=== PATIENT | male | born 1960 | race Caucasian/White ===

== ENCOUNTER 2018-01-21 19:02 | Emergency (ER) | payer SELFPAY ==
[~2018-01-21] VITALS: Ht 170.2 cm; Wt 53.1 kg
[~2018-01-21 19:02] MED LIST: DOXE25CA46 PO; FLUC100T PO; GBPN300C PO; GLIP10TA2 PO; GLUCOPHAGE; IBP800T PO; LIRA0.6P SQ; LISI-594 PO; LISI1TAB10 PO; MAGN400C PO; METF-380 PO; METF10002 PO; METO50TA15 PO; OMEP20CA12 PO; PANT40TA3 PO; SIMV40TA4 PO; SULF1TAB35 PO; SULF1TAB38 PO; TRAM-21 PO; TRAM-42 PO; TRM50T PO; VILA40TA PO
--- OUTSIDE RECORDS SUMMARY | 2018-01-21 19:08 | XMS REPORT ---
Author Author PAZ CRANE [facility] eClinicalWorks Address Unknown Phone Unavailable Care Team Providers Care Environmental Conservation Professor Name Role Phone PAZ CRANE CP Unavailable Allergies No Known Allergies Problems Problem Type Condition Code Onset Dates Condition Status Problem Bipolar 1 disorder F31.9 Active Problem Cough R05 Active Problem Routine health maintenance Z00.00 Active Problem Diabetes E11.9 Active Problem Encounter for counseling and surveillance for drug use disorder Z71.51 Active Problem History of arthritis Z87.39 Active Problem Hyperlipidemia E78.5 Active Problem GERD (gastroesophageal reflux disease) K21.9 Active Problem Hypertension I10 Active Medications No Known Medications Results No Known Results Summary Purpose eClinicalWorks Submission
--- OUTSIDE RECORDS SUMMARY | 2018-01-21 19:08 | XMS REPORT ---
Author Author MICHAEL MOORE [facility] Address [address] [place] [address] Care Team Providers Care Continuous Pillowcase Cutter Name Role Phone MICHAEL MOORE Unavailable PROBLEMS Type Condition ICD9-CM Code FCW50-MA Code Onset Dates Condition Status SNOMED Code Problem Cough R05 Active 04754950 Problem Routine health maintenance Z00.00 Active 687489151 Problem GERD (gastroesophageal reflux disease) K21.9 Active 919047389 Problem Type 2 diabetes mellitus with hyperglycemia E11.65 Active 56531622 Problem residential current use of insulin Z79.4 Active 819490554 Problem Bipolar 1 disorder F31.9 Active 551696406 Problem Hyperlipidemia E78.5 Active 48598831 Problem Arthritis M19.90 Active 8758052 Problem Encounter for counseling and surveillance for drug use disorder Z71.51 Active 112758567 Problem Other chronic gastritis without hemorrhage K29.50 Active 0253246 Problem Hiatal hernia K44.9 Active 13376031 Problem Reflux esophagitis K21.0 Active 130915651 Problem Esophageal candidiasis B37.81 Active 48355384 Problem Hypertension I10 Active 24544958 ALLERGIES Substance Reaction Event Type Date Status Sudafed anxiety, hallucinations Drug Allergy May, Active Neurontin Unknown Drug Allergy May, Active Celebrex Unknown Drug Allergy May, Active Morphine Unknown Drug Allergy May, Active Codeine Unknown Drug Allergy May, Active ENCOUNTERS Encounter Location Date Diagnosis [facility] [address] [facility] [id number], [place] [address] Nov, [facility] [address] [facility] [id number] [address] October, [facility] [address] [id number], [place] [address] 64[address] October, [facility] [id number] [place] [address] 40835- 9626 October, [place] [id number] [place] [address] 21999- 4762 October, Hyperlipidemia E78.5 ; Type 2 diabetes mellitus with hyperglycemia E11.65 ; GERD (gastroesophageal reflux disease) K21.9 ; Arthritis M19.90 ; Bipolar 1 disorder F31.9 and Cough R05 [facility] WALK IN [facility] [id number] [place] [address] 77153 -7900 Sep, Cellulitis of right thumb L03.011 [place] [id number] [place] [address] 26539- 0095 Jul, Arthritis M19.90 [facility] WALK IN [place] [id number] [place] [address] 26270 -7710 May, Paronychia of finger of right hand L03.011 [place] [id number] [place] [address] 40800- 0220 May, Paronychia of finger of right hand L03.011 [facility] WALK IN [place] [id number] [place] [address] 26700 -2129 May, Paronychia of finger of right hand L03.011 [place] [id number] [place] [address] 50620- 3237 May, Paronychia of finger of right hand L03.011 and Arthritis M19.90 [place] [id number] [place] [address] 40785- 0215 May, Hypertension I10 ; Hyperlipidemia E78.5 ; Type 2 diabetes mellitus with hyperglycemia E11.65 ; residential current use of insulin Z79.4 ; Edema of face R60.0 ; Acute non-recurrent maxillary sinusitis J01.00 and GERD ( gastroesophageal reflux disease) K21.9 [place] [id number] [place] [address] 90420- 1035 October, Diabetes type 2, uncontrolled E11.65 ; Hypertension I10 ; GERD (gastroesophageal reflux disease) K21.9 ; Hyperlipidemia E78.5 and Arthritis M19.90 [facility] [id number] [place] [address] 13722- 3285 14 Aug, 2016 [facility] [id number] [place] [address] 61023- 4280 08 Aug, 2016 [facility] [id number] [place] [address] 62624- 3154 Aug, Diabetes E11.9 ; Hypertension I10 ; Hyperlipidemia E78.5 and GERD (gastroesophageal reflux disease) K21.9 [facility] [id number] [place] [address] 11017 -5044 Jul, [facility] [address] [address]106- 9163 Sep, Diabetes E11.9 ; GERD (gastroesophageal reflux disease) K21.9 ; Hypertension I10 ; Hyperlipidemia E78.5 ; History of arthritis Z87.39 ; Bipolar 1 disorder F31.9 and Encounter for counseling and surveillance for drug use disorder Z71.51 [place] [id number] [place] [address] 01481- 6310 Sep, [place] [id number] [place] [address] 95341- 4023 Aug, [facility] [id number] [place] [address] 70048- 7587 Aug, Routine health maintenance Z00.00 ; Diabetes E11.9 ; GERD ( gastroesophageal reflux disease) K21.9 ; History of arthritis Z87.39 ; Hypertension I10 ; Hyperlipidemia E78.5 ; Bipolar 1 disorder F31.9 and Cough R05 [place] [id number] [place] [address] 14034- 7165 Aug, [facility] [id number] [place] [address] 50373- 1723 Aug, Cough R05 [facility] [address] 21185- 0249 Mar, GERD (gastroesophageal reflux disease) K21.9 and Esophageal yeast infection B37.81 [place] [id number] [place] [address] 59511- 8820 Mar, [place] [id number] [place] [address] 06400- 9853 Mar, Difficulty swallowing R13.10 [place] [id number] [place] [address] 23433- 0130 Mar, Cellulitis of finger of left hand L03.012 [place] [id number] [place] [address] 95184- 8829 Mar, Infection of nail bed of finger of left hand L03.012 and Type 2 diabetes mellitus with other skin complications E11.628 [place] [id number] [place] [address] 05277- 6746 Mar, [place] [id number] [place] [address] 42230- 6976 Dec, [place] [id number] [place] [address] 00185- 8638 Dec, [place] [id number] [place] [address] 23719- 5480 Dec, Hand joint pain 719.44 ; Diabetes mellitus without mention of complication, type II or unspecified type, uncontrolled 250.02 ; Bipolar I disorder, most recent episode (or current) mixed, severe, specified as with psychotic behavior 296.64 ; Essential hypertension, benign 401.1 ; Other and unspecified hyperlipidemia 272.4 and Acute gastritis without mention of hemorrhage 535.00 [place] [id number] [place] [address] 83668- 8389 Nov, [place] [id number] [place] [address] 00709- 5145 Nov, [place] [id number] [place] [address] 16058- 7389 Nov, Hand joint pain 719.44 and Upper respiratory infection, acute 465.9 [facility] [address] [id number] [place] [address]- 7163 14 Sep, 2014 [facility] [address] [facility] [id number], [place] [address]- 1626 13 Sep, 2014 [facility] [address] [facility] [id number] [place] [address]- 4729 27 Aug, 2014 [facility] [address] [id number], [place] [address]- 3383 27 Aug, 2014 [facility] [address] [facility] [id number] [place] [address]- 1707 Aug, [facility] [address] [facility] [id number] [place] [address]- 1490 Aug, [facility] [address], [place] [address]- 7118 Aug, [facility] [address] [facility] [id number], [place] [address]- 0223 Aug, [facility] [address] [id number], [place] [address]- 5392 Aug, [facility] [address] [facility] [id number], [place] [address]- 2958 Aug, [facility] [address] [facility] [id number], [place] [address]- 9609 Aug, [facility] [place] [facility] [address] [facility] [id number], [place] [address]- 7217 Aug, [facility] [place] [facility] [address] [facility] [id number], [place] [address]- 5773 Aug, [facility] [place] [facility] [address] [facility] [id number], [place] [address]- 9051 Aug, [facility] [place] [facility] [address], [place] [address]- 0287 Aug, [facility] [place] [facility] [address] [id number] [place] [address]- 3129 Aug, 2014 [facility] [place] [facility] [address] [id number] [place] [address]- 0014 Aug, 2014 [facility] [place] [facility] [address] [id number] [place] [address]- 9885 Aug, 2014 [facility] [place] [facility] [address] [id number] [place] [address]- 6519 Aug, 2014 [facility] [place] [facility] [address] [id number] [place] [address]- 8507 Aug, 2014 [facility] [place] [facility] [address] [id number] [place] [address]- 2150 Aug, 2014 [facility] [place] [facility] [address] [facility] [id number] [place] [address]- 5047 Aug, 2014 [facility] [place] [facility] [address] [id number] [place] [address]- 4639 Aug, 2014 [facility] [place] [facility] [address] [id number] [place] [address]- 0804 Aug, 2014 [facility] [place] [facility] [address] [facility] [id number] [place] [address]- 5427 Jul, [facility] [place] [facility] [address] [id number] [place] [address]- 0724 Jul, [facility] [place] [facility] [address] [id number] [place] [address]- 0034 Jul, [facility] [place] [facility] [address] [id number] [place] [address]- 9953 Jul, [facility] [place] [facility] [address] [id number] [place] [address]- 4694 May, [facility] [place] [facility] [address] [id number] [place] [address]- 7907 May, [facility] [place] [facility] [address] [id number] [place] [address]- 8436 May, [facility] [place] [facility] [address] [id number] [place] [address]- 1087 May, [facility] [place] [facility] [address] [id number] [place] [address]- 6674 May, [facility] [place] [facility] [address] [id number] [place] [address]- 1870 May, [facility] [place] [facility] [address] [id number] [place] [address]- 9705 May, [facility] [place] [facility] [address] [id number] [place] [address]- 3008 May, [facility] [place] [facility] [address] [id number] [place] [address]- 8635 May, [facility] [place] [facility] [address] [id number] [place] [address]- 8347 May, [facility] [place] [facility] [address] [id number] [place] [address]- 7745 Mar, [facility] [place] [facility] [address] [id number] [place] [address]- 4786 Mar, [facility] [place] [facility] [address] [id number] [place] [address]- 4913 Mar, [facility] [place] [facility] [address] [id number] [place] [address]- 5877 Mar, [facility] [place] [facility] [address] [id number], [place] [address]- 2531 Mar, [facility] [place] [facility] [address] [id number] [place] [address]- 8332 Mar, [facility] [place] [facility] [address] [id number], [place] [address]- 8120 Mar, [facility] [place] [facility] [address] [id number], [place] [address]- 4971 Mar, [facility] [place] [facility] [address] [id number] [place] [address]- 3881 Mar, [facility] [place] [facility] [address] [id number] [place] [address]- 9026 Mar, [facility] [place] [facility] [address] [id number] [place] [address]- 7396 Mar, 2013 [facility] [place] [facility] [address] [id number] [place] [address]- 6634 Mar, [facility] [place] [facility] [address] [id number] [place] [address]- 8620 Mar, [facility] [place] [facility] [address] [id number] [place] [address]- 7721 Mar, [facility] [place] [facility] [address] [id number] [place] [address]- 3610 26 Mar, 2013 [facility] [place] [facility] [address] [id number] [place] [address]- 7239 26 Mar, 2013 [facility] [place] [facility] [address] [id number] [place] [address] 2547 24 Mar, 2013 [facility] [place] [facility] [address] [id number] [place] [address] 2547 24 Mar, 2013 [facility] [place] [facility] [address] [id number] [place] [address] 2546 22 Mar, 2013 [facility] [place] [facility] [address] [id number] [place] [address] 2549 22 Mar, 2013 [facility] [place] [facility] [address] [id number] [place] [address] 2546 15 Mar, 2013 [facility] [place] [facility] [address] [id number] [place] [address] 2546 15 Mar, 2013 [facility] [place] [facility] [address] [id number] [place] [address] 2546 08 Sep, 2013 [facility] [place] [facility] [address] [id number] [place] [address]- 4362 Mar, [facility] [place] [facility] [address] [id number] [place] [address]- 8279 Mar, [facility] [place] [facility] [address] [id number] [place] [address]- 5706 Mar, [facility] [place] [facility] [address] [id number] [place] [address]- 2126 Mar, [facility] [place] [facility] [address] [id number] [place] [address]- 6687 Mar, [facility] [place] [facility] [address] [id number] [place] [address]- 8551 Jan, [facility] [place] [facility] [address] [id number] [place] [address]- 6585 Jan, [facility] [place] [facility] [address] [id number] [place] [address]- 9950 Jan, [facility] [place] [facility] [address] [id number] [place] [address]- 3600 Jan, [facility] [place] [facility] [address] [id number] [place] [address]- 5872 Jan, [facility] [place] [facility] [address] [id number] [place] [address]- 1826 Jan, [facility] [place] [facility] [address] [id number] [place] [address]- 2038 Jan, [facility] [place] [facility] [address] [id number], [place] [address]- 0613 Jan, [facility] [place] [facility] [address] [id number] [place] [address]- 2260 Jan, [facility] [place] [facility] [address] [id number] [place] [address]- 7777 Jan, [facility] [place] [facility] [address] [id number] [place] [address]- 1421 Dec, [facility] [place] [facility] [address] [id number] [place] [address]- 2513 18 Dec, 2013 [facility] [place] [facility] [address] [id number] [place] [address]- 0216 16 Dec, 2013 [facility] [place] [facility] [address] [id number] [place] [address]- 4589 14 Dec, 2013 [facility] [place] [facility] [address] [id number] [place] [address]- 2696 Dec, [facility] [place] [facility] [address] [id number] [place] [address]- 0063 Dec, [facility] [place] [facility] [address] [id number] [place] [address]- 6054 Dec, [facility] [place] [facility] [address] [id number] [place] [address]- 6807 Dec, [facility] [place] [facility] [address] [id number] [place] [address]- 0110 Dec, [facility] [place] [facility] [address] [id number] [place] [address]- 8714 Nov, [facility] [place] [facility] [address] [id number] [place] [address]- 2628 Nov, [facility] [place] [facility] [address] [id number] [place] [address]- 0716 October, [facility] [place] [facility] [address] [id number] [place] [address]- 7700 October, [facility] [place] [facility] [address] [id number] [place] [address]- 6651 Sep, [facility] [place] [facility] [address] [id number] [place] [address]- 9275 Sep, [facility] [place] [facility] [address] [id number] [place] [address]- 6223 Sep, [facility] [place] [facility] [address] [id number] [place] [address]- 9646 Sep, [facility] [place] [facility] [address] [id number] [place] [address]- 6897 Aug, [facility] [place] [facility] [address] [id number] [place] [address]- 0872 Aug, [facility] [place] [facility] [address] [id number] [place] [address]- 4406 Aug, [facility] [place] [facility] [address] [id number] [place] [address]- 7966 Aug, [facility] [place] [facility] [address] [id number] [place] [address]- 9424 Aug, [facility] [place] [facility] [address] [id number] [place] [address]- 8037 Aug, [facility] [place] [facility] [address] [id number] [place] [address]- 4562 Jul, [facility] [place] [facility] [address] [id number] [place] [address]- 3906 Jul, [facility] [place] [facility] [address] [id number] [place] [address]- 7873 May, [facility] [place] [facility] [address] [id number] [place] [address]- 6611 May, [facility] [place] [facility] [address] [id number] [place] [address]- 0380 May, [facility] [place] [facility] [address] [id number] [place] [address]- 9496 May, [facility] [place] [facility] [address] [id number] [place] [address]- 2546 May, [facility] [place] [facility] [address] [id number] [place] [address]- 2546 May, [facility] [place] [facility] [address] [id number] [place] [address]- 2546 Mar, [facility] [place] [facility] [address] [id number], [place] [address]- 2336 Dec, [facility] [address] [id number], [place] [address]- 0391 Dec, [facility] [address] [id number], [place] [address]- 0819 October, [facility] [address], [place] [address]- 8232 October, [facility] [address], [place] [address]- 0061 October, [facility] [address], [place] [address]- 9845 October, [facility] [address], [place] [address]- 3868 October, [facility] [address], [place] [address]- 8254 October, [facility] [address] [id number], [place] [address]- 0324 Aug, [facility] [address] [id number], [place] [address]- 2966 Aug, [facility] [address] [id number], [place] [address]- 4471 Aug, IMMUNIZATIONS No Known Immunizations SOCIAL HISTORY Never Assessed REASON FOR VISIT Re-assess finger infection. AJAY Wong. PLAN OF CARE Activity Details Follow Up prn Reason: VITAL SIGNS Height 66 in 2017-06-03 Weight 128.4 lbs 2017-06-03 Temperature 98.4 degrees Fahrenheit 2017-06-03 Heart Rate 86 bpm 2017-06-03 Respiratory Rate 18 2017-06-03 BMI 20.72 kg/m2 2017-06-03 Blood pressure systolic 114 mmHg 2017-06-03 Blood pressure diastolic 70 mmHg 2017-06-03 MEDICATIONS Medication Instructions Dosage Frequency Start Date End Date Duration Status Lantus SoloStar 100 UNIT/ML Subcutaneous at bedtime Inject 10 units October, 30 days Active Lisinopril 10 MG Orally Once a day 1 tablet 24h October, 30 days Active Glucocard Expression Test 1 subcutaneously 2 times a day test 2 times per day 12h 14 Aug, 2016 10 days Active Wellbutrin XL 150 MG Orally Once a day 1 tablet in the morning 24h 24 Aug, 2015 30 day(s) Not-Taking Nexium 24HR 20 mg Orally Once a day 1 capsule 24h Aug, 30 days Active Invega 9 MG Orally Once a day 1 tablet by Oral route 1 time per day at night 24h Aug, Not-Taking Levemir FlexTouch 100 UNIT/ML Subcutaneous Once a day 10 units at bedtime 24h Aug, 90 days Not-Taking MetFORMIN HCl ER 750 MG Orally twice a day 1 tablet twice a day 12h October 30 days Active Clindamycin HCl 300 MG Orally every 8 hrs 1 capsule 8h May,May 10 days Active GlipiZIDE 10 MG Orally Once a day 1 tablet 24h Aug, 30 days Active tramadol 50 mg by oral route 3 times a day prn 1 tablet Aug, Not-Taking Clindamycin HCl 300 MG Orally every 8 hrs 1 capsule 8h May,May 5 day(s) Active Simvastatin 10 mg Orally Once a day 1 tablet in the evening 24h Aug, 90 days Active doxepin 25 oral Once a day 1 capsule by Oral route 1 time per day QHS 24h Aug, Not-Taking Benzonatate 200 MG Orally Three times a day 1 capsule as needed 8h 21 Aug, 2015 Not-Taking RESULTS No Results PROCEDURES No Known procedures INSTRUCTIONS MEDICATIONS ADMINISTERED No Known Medications MEDICAL (GENERAL) HISTORY Type Description Date Medical History Hypertension Medical History Hyperlipidemia Medical History Type 2 Diabetes Mellitus Medical History External hemorrhoids Medical History Male erectile dysfunction Medical History Arthralgia Medical History Tenosynovitis Medical History Generalized anxiety disorder Medical History Warts Surgical History LEFT INDEX FINGER AT AGE 7 OR 8 Hospitalization History stayed for 10 days at mar 2015
--- OUTSIDE RECORDS SUMMARY | 2018-01-21 19:08 | XMS REPORT ---
Author Author HILTON CORDON [facility] eClinicalWorks Address Unknown Phone Unavailable Care Team Providers Care Customs Broker Name Role Phone HILTON CORDON CP Unavailable Allergies, Adverse Reactions, Alerts Substance Reaction Event Type Sudafed anxiety, hallucinations Drug Allergy Neurontin Info Not Available Drug Allergy Celebrex Info Not Available Drug Allergy Morphine Info Not Available Drug Allergy Codeine Info Not Available Drug Allergy Problems Problem Type Condition Code Onset Dates Condition Status Assessment Type 2 diabetes mellitus with other skin complications E11.628 Active Assessment Infection of nail bed of finger of left hand L03.012 Active Problem Plantar fascial fibromatosis 728.71 Active Problem Unemployment V62.0 Active Problem Lateral epicondylitis of elbow 726.32 Active Problem Unspecified synovitis and tenosynovitis 727.00 Active Problem Acute gastritis without mention of hemorrhage 535.00 Active Problem Headache 784.0 Active Problem Pain in joint, site unspecified 719.40 Active Problem Viral warts, unspecified 078.10 Active Problem Bipolar I disorder, most recent episode (or current) mixed, severe, specified as with psychotic behavior 296.64 Active Problem Generalized anxiety disorder 300.02 Active Problem PPV23 (PNEUMOVAX) DX V03.82 Active Problem Routine general medical examination at health care facility V70.0 Active Problem Hand joint pain 719.44 Active Problem Other and unspecified hyperlipidemia 272.4 Active Problem Diabetes mellitus without mention of complication, type II or unspecified type, uncontrolled 250.02 Active Problem Pain in joint, shoulder region 719.41 Active Problem Insomnia, unspecified 780.52 Active Problem Encounter for long-term (current) use of other medications V58.69 Active Problem Special screening for malignant neoplasms, colon V76.51 Active Problem External hemorrhoids without mention of complication 455.3 Active Problem Impotence of organic origin 607.84 Active Problem Unspecified urinary incontinence 788.30 Active Problem Personal history of noncompliance with medical treatment, presenting hazards to health V15.81 Active Problem Lack of housing V60.0 Active Problem Essential hypertension, benign 401.1 Active Problem Pain in soft tissues of limb 729.5 Active Medications Medication Code System Code Instructions Start Date End Date Status Dosage Simvastatin [facility] [address]-08 40 MG Orally Once a day before bed Aug 03, 2014 1 tablet by Oral route 1 time per day Repository Viibryd [facility] [address]-50 40 MG Orally Once a day Aug 04, 2014 1 Tablet by Oral route 1 time per day metformin [facility] [address]-43 1,000 mg oral 2 times a day Jun 18, 2014 take 1 tablet by Oral route with morning and evening meals 2 times per day Glucotrol [facility] [address]-07 10 MG Aug 03, 2014 2 tablet by Oral route 2 times per day Bactrim DS [facility] [address]-57 800-160 MG Orally 2 times a day Apr 12, 2015 Apr 22, 2015 1 tablet Invega [facility] [address]-91 9 MG Orally Once a day Aug 04, 2014 1 tablet by Oral route 1 time per day at night doxepin ND 0 25 oral Once a day September 16, 2014 1 capsule by Oral route 1 time per day QHS tramadol ND 0 50 mg September 24, 2014 take 1 tablet (50 mg) by oral route every 4-6 hours as needed PRN pain Omeprazole [facility] [address]-09 20 MG Orally Once a day September 23, 2014 take 1 capsule by Oral route before a meal 1 time per day Repository Victoza [facility] [address]-32 18 MG/3ML Subcutaneous Once a day Mar 25, 2015 1.8mg Easy Touch Pen [place] [facility] 8496-797184 32G X 5 MM Once a day Mar 25, 2015 as directed Lisinopril-Hydrochlorothiazide [facility] [address]-85 20-12.5 MG Orally Once a day Aug 03, 2014 take 1 tablet by Oral route 1 time per day Repository Procedures Procedure Coding System Code Date Office Visit, Est Pt., Level 4 CPT-4 28279 Apr 12, 2015 ROCEPHIN 1 GM (IM) CPT-4 J0696 Apr 12, 2015 COMPLETE CBC W/AUTO DIFF WBC CPT-4 46815 Apr 12, 2015 VENIPUNCT, ROUTINE* CPT-4 35118 Apr 12, 2015 THER/PROPH/DIAG INJ, SC/IM CPT-4 13711 Apr 12, 2015 Vital Signs Date/Time: Apr 12, 2015 Temperature 98.2 F Weight 164.2 lbs Height 66 in BMI 26.50 Index Blood Pressure Diastolic 82 mmHg Blood Pressure Systolic 126 mmHg Cardiac Monitoring Heart Rate 90 bpm Results No Known Results Summary Purpose eClinicalWorks Submission
--- OUTSIDE RECORDS SUMMARY | 2018-01-21 19:08 | XMS REPORT ---
Author Author MICHAEL MOORE Organization [facility] Address [address] [place] [address] Care Team Providers Care Data Report Analyst Name Role Phone OSCAR MICHAEL Unavailable PROBLEMS Type Condition ICD9-CM Code SXE21-GO Code Onset Dates Condition Status SNOMED Code Problem Hyperlipidemia E78.5 Active 96633703 Problem Hypertension I10 Active 60724028 Problem GERD (gastroesophageal reflux disease) K21.9 Active 563194117 Problem Arthritis M19.90 Active 7812028 Problem Diabetes type 2, uncontrolled E11.65 Active 221284647 Problem Routine health maintenance Z00.00 Active 337269973 Problem Cough R05 Active 78850325 Problem Encounter for counseling and surveillance for drug use disorder Z71.51 Active 234374650 Problem Bipolar 1 disorder F31.9 Active 914003237 ALLERGIES No Information SOCIAL HISTORY Never Assessed PLAN OF CARE VITAL SIGNS MEDICATIONS Medication Instructions Dosage Frequency Start Date End Date Duration Status Glucocard Expression Test - In Vitro 2 times a day test blood sugar 12h 14 Aug, 2016 25 days Active RESULTS No Results PROCEDURES No Known procedures IMMUNIZATIONS No Known Immunizations MEDICAL (GENERAL) HISTORY Type Description Date Medical [...]
--- OUTSIDE RECORDS SUMMARY | 2018-01-21 19:08 | XMS REPORT ---
Author SILVANO Hoffman [facility] eClinicalWorks Address Unknown Phone Unavailable Care Team Providers Care Chocolate Molder Name Role Phone SILVANO DONATO CP Unavailable Allergies No Known Allergies Problems Problem Type Condition Code Onset Dates Condition Status Assessment Esophageal yeast infection B37.81 Active Assessment GERD (gastroesophageal reflux disease) K21.9 Active Problem Plantar fascial fibromatosis 728.71 Active Problem Lateral epicondylitis of elbow 726.32 Active Problem Acute gastritis without mention of hemorrhage 535.00 Active Problem Headache 784.0 Active Problem Other and unspecified hyperlipidemia 272.4 Active Problem Viral warts, unspecified 078.10 Active Problem Routine general medical examination at health care facility V70.0 Active Problem Pain in joint, site unspecified 719.40 Active Problem Diabetes mellitus without mention of complication, type II or unspecified type, uncontrolled 250.02 Active Problem Pain in joint, shoulder region 719.41 Active Problem Esophageal yeast infection B37.81 Active Problem Hand joint pain 719.44 Active Problem Unspecified urinary incontinence 788.30 Active Problem Impotence of organic origin 607.84 Active Problem GERD (gastroesophageal reflux disease) K21.9 Active Problem PPV23 (PNEUMOVAX) DX V03.82 Active Problem Insomnia, unspecified 780.52 Active Problem Encounter for long-term (current) use of other medications V58.69 Active Problem Bipolar I disorder, most recent episode (or current) mixed, severe, specified as with psychotic behavior 296.64 Active Problem Generalized anxiety disorder 300.02 Active Problem Essential hypertension, benign 401.1 Active Problem Pain in soft tissues of limb 729.5 Active Problem Special screening for malignant neoplasms, colon V76.51 Active Problem External hemorrhoids without mention of complication 455.3 Active Problem Unemployment V62.0 Active Problem Unspecified synovitis and tenosynovitis 727.00 Active Problem Personal history of noncompliance with medical treatment, presenting hazards to health V15.81 Active Problem Lack of housing V60.0 Active Medications Medication Code System Code Instructions Start Date End Date Status Dosage Fluconazole NDC [address]-25 100 MG Orally Once a day Apr 28, 2015May 1 tablet Pantoprazole Sodium [facility] [address]-45 40 MG Orally Once a day Apr 28, 2015 1 tablet Results No Known Results Summary Purpose eClinicalWorks Submission
--- OUTSIDE RECORDS SUMMARY | 2018-01-21 19:09 | XMS REPORT ---
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 Active 493566733 Problem Hiatal hernia K44.9 Active 25312588 Problem Type 2 diabetes mellitus with hyperglycemia E11.65 Active 16779167 Problem 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 Active 948127485 Problem Bipolar 1 disorder F31.9 Active 552282273 Problem GERD (gastroesophageal reflux disease) K21.9 Active 431090432 Problem Arthritis M19.90 Active 1296240 Problem Encounter for counseling and surveillance for drug use disorder Z71.51 Active 630082895 ALLERGIES No Information ENCOUNTERS Encounter Location Date Diagnosis [facility] [address], [place] [address] Nov, Type 2 diabetes mellitus with hyperglycemia E11.65 ; 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 ; Hypertension I10 ; Hyperlipidemia E78.5 ; Arthritis M19.90 ; GERD (gastroesophageal reflux disease) K21.9 ; Hiatal hernia K44.9 and Bipolar 1 disorder F31.9 [facility] [id number] [address] October, [facility] [address], [place] [address] October, [facility] [id number], [place] [address] October, [facility] [id number] [place] [address] October, Hyperlipidemia E78.5 ; Type 2 diabetes mellitus with hyperglycemia E11.65 ; GERD (gastroesophageal reflux disease) K21.9 ; Arthritis M19.90 ; Bipolar 1 disorder F31.9 and Cough R05 [facility] [id number] [place] [address] Sep, Cellulitis of right thumb L03.011 [place] [address] [address] [address] Jul, Arthritis M19.90 [facility] [address] [address] May, Paronychia of finger of right hand L03.011 [place] [id number] [place] [address]- 8780 May, Paronychia of finger of right hand L03.011 [facility] [place] [id number] [place] [address] May, Paronychia of finger of right hand L03.011 [place] [address] [address] May, Paronychia of finger of right hand L03.011 and Arthritis M19.90 [place] [id number] [place] [address]991- 3395 May, Hypertension I10 ; Hyperlipidemia E78.5 ; Type 2 diabetes mellitus with hyperglycemia E11.65 ; 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 ; Edema of face R60.0 ; Acute non-recurrent maxillary sinusitis J01.00 and GERD ( gastroesophageal reflux disease) K21.9 [place] [id number] [place] [address]- [address] October, Diabetes type 2, uncontrolled E11.65 ; Hypertension I10 ; GERD (gastroesophageal reflux disease) K21.9 ; Hyperlipidemia E78.5 and Arthritis M19.[address] [place] [address]- [address] 14 Aug, 2016 [facility] [id number] [place] [address]- 24[address] 08 Aug, 2016 [place] [id number] [place] [address]- 3[address] 07 Aug, 2016 Diabetes E11.9 ; Hypertension I10 ; Hyperlipidemia E78.5 and GERD (gastroesophageal reflux disease) K21.9 [facility] [id number] [place] [address] -[address]10 Jul, [place] [address] [address] Sep, Diabetes E11.9 ; GERD (gastroesophageal reflux disease) K21.9 ; Hypertension I10 ; Hyperlipidemia E78.5 ; History of arthritis Z87.39 ; Bipolar 1 disorder F31.9 and Encounter for counseling and surveillance for drug use disorder Z71.51 [place] [id number] [place] [address]36- 2626 Sep, [place] [id number] [place] [address]23- 6758 Aug, [place] [id number] [place] [address] 56166- 9226 Aug, Routine health maintenance Z00.00 ; Diabetes E11.9 ; GERD ( gastroesophageal reflux disease) K21.9 ; History of arthritis Z87.39 ; Hypertension I10 ; Hyperlipidemia E78.5 ; Bipolar 1 disorder F31.9 and Cough R05 [place] [id number] [place] [address]- 1329 Aug, [place] [address] [address]- 9755 Aug, Cough R05 [place] [id number] [place] [address]- 7[address] Mar, GERD (gastroesophageal reflux disease) K21.9 and Esophageal yeast infection B37.81 [place] [address] [address] Mar, [place] [id number] [place] [address] 80272- 7692 Mar, Difficulty swallowing R13.10 [place] [address] [place] [address] 36154- 0180 14 Mar, 2015 Cellulitis of finger of left hand L03.012 [place] [id number] [place] [address] 8[address]44- 1154 Mar, Infection of nail bed of finger of left hand L03.012 and Type 2 diabetes mellitus with other skin complications E11.628 [place] [id number] [place] [address]32- 3782 Mar, [place] [id number] [place] [address] 26211- 8357 Dec, [place] [id number] [place] [address] 20173- 2696 Dec, [place] [id number] [place] [address] 39855- 2555 Dec, Hand joint pain 719.44 ; Diabetes mellitus without mention of complication, type II or unspecified type, uncontrolled 250.02 ; Bipolar I disorder, most recent episode (or current) mixed, severe, specified as with psychotic behavior 296.64 ; Essential hypertension, benign 401.1 ; Other and unspecified hyperlipidemia 272.4 and Acute gastritis without mention of hemorrhage 535.00 [place] [address] [place] [address] 07317- 0086 Nov, [place] [id number] [place] [address] 71048- 9816 Nov, [place] [address] [place] [address] 42585- 9676 Nov, Hand joint pain 719.44 and Upper respiratory infection, acute 465.9 [place] [id number] [place] [address] 57606- 9[address] 14 Sep, 2014 [facility] [place] [facility] [address] [id number] [place] [address]- 3919 13 Sep, 2014 [facility] [place] [facility] [address] [id number] [place] [address]- 8674 27 Aug, 2014 [facility] [place] [facility] [address] [facility] [id number] [place] [address]- 0482 Aug, [facility] [place] [facility] [address] [id number] [place] [address]- 0245 Aug, [facility] [place] [facility] [address] [id number] [place] [address]- 8985 Aug, [facility] [place] [facility] [address] [facility] [id number] [place] [address]- 9478 Aug, [facility] [place] [facility] [address] [facility] [id number] [place] [address]- 6107 Aug, [facility] [place] [facility] [address] [facility] [id number] [place] [address]- 7773 Aug, [facility] [place] [facility] [address] [id number] [place] [address]- 7194 Aug, [facility] [place] [facility] [address] [facility] [id number] [place] [address]- 8178 Aug, [facility] [place] [facility] [address] [id number] [place] [address]- 7719 Aug, [facility] [place] [facility] [address] [facility] [id number] [address] 49[address] Aug, [facility] [place] [facility] [address] [id number] [place] [address]- 3016 Aug, [facility] [place] [facility] [address] [facility] [id number], [place] [address]- 3983 Aug, [facility] [place] [facility] [address] [facility] [id number], [place] [address]- 9958 Aug, [facility] [place] [facility] [address] [id number] [place] [address]- 3519 Aug, 2014 [facility] [place] [facility] [address] [id number] [place] [address]- 0345 Aug, 2014 [facility] [place] [facility] [address] [id number] [place] [address]- 4315 Aug, 2014 [facility] [place] [facility] [address] [id number] [place] [address]- 4923 Aug, 2014 [facility] [place] [facility] [address] [id number] [place] [address]- 2188 Aug, 2014 [facility] [place] [facility] [address] [id number] [place] [address]- 6905 Aug, 2014 [facility] [place] [facility] [address] [id number] [place] [address]- 2080 Aug, 2014 [facility] [place] [facility] [address] [id number] [place] [address]- 2033 Aug, [facility] [place] [facility] [address] [id number] [place] [address]- 2754 Jul, [facility] [place] [facility] [address] [id number] [place] [address]- 3773 Jul, [facility] [place] [facility] [address] [id number] [place] [address]- 3787 Jul, [facility] [place] [facility] [address] [id number] [place] [address]- 5305 Jul, [facility] [place] [facility] [address] [id number] [place] [address]- 7266 May, [facility] [place] [facility] [address] [id number] [place] [address]- 5954 May, [facility] [place] [facility] [address] [id number] [place] [address]- 2201 May, [facility] [place] [facility] [address] [id number] [place] [address]89 May, [facility] [place] [facility] [address] [id number] [place] [address] May, [facility] [place] [facility] [address] [id number] [place] [address] May, [facility] [place] [facility] [address] [id number] [place] [address]- 9576 May, [facility] [place] [facility] [address] [id number] [place] [address]- 1061 May, [facility] [place] [facility] [address] [id number] [place] [address]- 9320 May, [facility] [place] [facility] [address] [id number] [place] [address]- 1383 May, [facility] [place] [facility] [address] [id number] [place] [address]- 6713 Mar, [facility] [place] [facility] [address] [id number] [place] [address]- 2652 Mar, [facility] [place] [facility] [address] [id number] [place] [address]- 6976 Mar, [facility] [place] [facility] [address] [facility] [id number] [place] [address]- 7832 Mar, [facility] [place] [facility] [address] [id number] [place] [address]- 5546 Mar, [facility] [place] [facility] [address] [id number] [place] [address]- 3649 Mar, [facility] [place] [facility] [address] [id number] [place] [address]- 9801 Mar, [facility] [place] [facility] [address] [facility] [id number] [place] [address]- 2657 Mar, [facility] [place] [facility] [address] [facility] [id number] [address]36 Mar, [facility] [place] [facility] [address] [id number] [place] [address]- 8534 Mar, [facility] [place] [facility] [address] [id number] [place] [address]- 0173 Mar, [facility] [place] [facility] [address] [id number] [place] [address]- 1936 Mar, [facility] [place] [facility] [address] [id number] [place] [address]- 9966 Mar, [facility] [place] [facility] [address] [id number] [place] [address]- 0570 Mar, [facility] [place] [facility] [address] [id number] [place] [address]- 6764 Mar, 2013 [facility] [place] [facility] [address] [id number] [place] [address]- 1311 26 Mar, 2013 [facility] [place] [facility] [address] [id number] [place] [address]- 1697 24 Mar, 2013 [facility] [place] [facility] [address] [id number] [place] [address]- 4315 24 Mar, 2013 [facility] [place] [facility] [address] [id number] [place] [address]- 1491 22 Mar, 2013 [facility] [place] [facility] [address] [id number] [place] [address] 254 22 Mar, 2013 [facility] [place] [facility] [address] [id number] [place] [address]- 2545 15 Mar, 2013 [facility] [place] [facility] [address] [id number] [place] [address] 2548 15 Mar, 2013 [facility] [place] [facility] [address] [id number] [place] [address]- 2544 08 Mar, 2013 [facility] [place] [facility] [address] [id number] [place] [address]- 2541 08 Mar, 2013 [facility] [place] [facility] [address] [id number] [place] [address]- 0604 Mar, [facility] [place] [facility] [address] [id number] [place] [address]- 9180 Mar, [facility] [place] [facility] [address] [id number] [place] [address]- 9184 Mar, [facility] [place] [facility] [address] [id number] [place] [address]- 6667 Mar, [facility] [place] [facility] [address] [id number] [place] [address]- 0019 Jan, [facility] [place] [facility] [address] [id number] [place] [address]- 0748 Jan, [facility] [place] [facility] [address] [id number] [place] [address]- 9553 Jan, [facility] [place] [facility] [address] [id number] [place] [address]- 4202 Jan, [facility] [place] [facility] [address] [id number] [place] [address]- 6613 Jan, [facility] [place] [facility] [address] [id number] [place] [address]- 3182 Jan, [facility] [place] [facility] [address] [id number] [place] [address]- 1422 Jan, [facility] [place] [facility] [address] [id number] [place] [address]- 3999 Jan, [facility] [place] [facility] [address] [id number] [place] [address]- 8490 Jan, [facility] [place] [facility] [address] [id number] [place] [address]- 5107 Jan, [facility] [place] [facility] [address] [id number] [place] [address]- 3716 Dec, [facility] [place] [facility] [address] [id number] [place] [address]- 4955 Dec, [facility] [place] [facility] [address] [id number] [place] [address]- 2701 16 Dec, 2013 [facility] [address] [id number] [place] [address]- 6049 14 Dec, 2013 [facility] [place] [facility] [address] [id number] [place] [address]- 5780 Dec, [facility] [place] [facility] [address] [id number] [place] [address]- 5406 Dec, [facility] [place] [facility] [address] [id number] [place] [address]- 7847 Dec, [facility] [place] [facility] [address] [id number] [place] [address]- 5127 Dec, [facility] [place] [facility] [address] [id number] [place] [address]- 8517 Dec, [facility] [place] [facility] [address] [id number] [place] [address]- 2466 Nov, [facility] [place] [facility] [address] [id number] [place] [address]- 8417 Nov, [facility] [place] [facility] [address] [id number] [place] [address]- 5743 October, [facility] [place] [facility] [address] [id number] [place] [address]- 7917 October, [facility] [place] [facility] [address] [id number] [place] [address]- 0102 Sep, [facility] [place] [facility] [address] [id number] [place] [address]- 2062 Sep, [facility] [place] [facility] [address] [id number] [place] [address]- 9531 Sep, [facility] [place] [facility] [address] [id number] [place] [address]- 5777 Sep, [facility] [place] [facility] [address] [id number] [place] [address]- 0564 Aug, [facility] [place] [facility] [address] [id number] [place] [address]- 6448 Aug, [facility] [place] [facility] [address] [id number] [place] [address]- 4304 Aug, [facility] [place] [facility] [address] [id number] [place] [address]- 7156 Aug, [facility] [place] [facility] [address] [id number] [place] [address]- 4212 Aug, [facility] [place] [facility] [address] [id number] [place] [address]- 5863 Aug, [facility] [place] [facility] [address] [id number] [place] [address]- 8348 Jul, [facility] [place] [facility] [address] [id number] [place] [address]- 9637 Jul, [facility] [place] [facility] [address] [id number] [place] [address]- 8288 May, [facility] [place] [facility] [address] [id number] [place] [address]- 0688 May, [facility] [place] [facility] [address] [id number] [place] [address]- 7870 May, [facility] [place] [facility] [address] [id number] [place] [address]- 6162 May, [facility] [place] [facility] [address] [id number], [place] [address]- 9743 May, [facility] [place] [facility] [address] [id number] [place] [address]- 0031 May, [facility] [place] [facility] [address] [id number] [place] [address]- 9635 Mar, [facility] [place] [facility] [address] [id number] [place] [address]- 5116 Dec, [facility] [place] [facility] [id number] [address]- 4599 Dec, [facility] [id number] [address]- 7829 October, [facility] [id number] [address]- 7021 October, [facility] [id number] [address]- 0520 October, [facility] [address] [address]- 1370 October, [facility] [address], [place] [address]- 2050 October, [facility] [address], [place] [address]- 8676 October, [facility] [address] [address]- 1384 Aug, [facility] [id number], [place] [address]- 9149 Aug, [facility] [id number] [address]- 0101 Aug, IMMUNIZATIONS No Known Immunizations SOCIAL HISTORY Never Assessed REASON FOR VISIT Controlled Med Refill PLAN OF CARE VITAL SIGNS MEDICATIONS Medication Instructions Dosage Frequency Start Date End Date Duration Status Tramadol HCl 50 mg Orally TID PRN 1 tablet as needed May, 14 days Active RESULTS No Results PROCEDURES No [...]
--- OUTSIDE RECORDS SUMMARY | 2018-01-21 19:09 | XMS REPORT ---
Author Author MICHAEL MOORE Organization [facility] Address [address] [place] [address] Care Team Providers Care Construction Representative Name Role Phone OSCAR MICHAEL Unavailable PROBLEMS Type Condition ICD9-CM Code QXN17-JG Code Onset Dates Condition Status SNOMED Code Problem Hyperlipidemia E78.5 Active 18061663 Problem Hypertension I10 Active 09209315 Problem GERD (gastroesophageal reflux disease) K21.9 Active 184638953 Problem Arthritis M19.90 Active 5273479 Problem Diabetes type 2, uncontrolled E11.65 Active 629164969 Problem Routine health maintenance Z00.00 Active 709624056 Problem Cough R05 Active 13478257 Problem Encounter for counseling and surveillance for drug use disorder Z71.51 Active 541178629 Problem Bipolar 1 disorder F31.9 Active 326347246 ALLERGIES Substance Reaction Event Type Date Status Sudafed anxiety, hallucinations Drug Allergy Aug, Active Neurontin Unknown Drug Allergy Aug, Active Celebrex Unknown Drug Allergy Aug, Active Morphine Unknown Drug Allergy Aug, Active Codeine Unknown Drug Allergy Aug, Active SOCIAL HISTORY Never Assessed PLAN OF CARE Activity Details Follow Up 3 Months Reason:CHM/DM VITAL SIGNS Height 66 in 2016-08-07 Weight 142.8 lbs 2016-08-07 Temperature 98.4 degrees Fahrenheit 2016-08-07 Heart Rate 78 bpm 2016-08-07 Respiratory Rate 18 2016-08-07 BMI 23.05 kg/m2 2016-08-07 Blood pressure systolic 144 mmHg 2016-08-07 Blood pressure diastolic 85 mmHg 2016-08-07 MEDICATIONS Medication Instructions Dosage Frequency Start Date End Date Duration Status Lisinopril 10 mg Orally Once a day 1 tablet 24h Aug, 90 days Active Nexium 24HR 20 mg Orally Once a day 1 capsule 24h Aug, 90 days Active GlipiZIDE 10 mg Orally Once a day 1 tablet 24h Aug, 90 days Active MetFORMIN HCl ER 750 MG Orally Once a day 1 tablet with evening meal 24h Aug, 90 days Active Simvastatin 10 mg Orally Once a day 1 tablet in the evening 24h Aug, 90 days Active Levemir FlexTouch 100 UNIT/ML Subcutaneous Once a day 10 units at bedtime 24h Aug, 12 months Active RESULTS Name Result Date Reference Range THYROID ANALYZER 2016-08-07 TSH 1.510 0.450-4.500 CBC 2016-08-07 WBC 6.1 3.4-10.8 RBC 4.75 4.14-5.80 Hemoglobin 14.5 12.6-17.7 Hematocrit 42.8 37.5-51.0 MCV 90 79-97 MCH 30.5 26.6-33.0 MCHC 33.9 31.5-35.7 RDW 13.7 12.3-15.4 Platelets 198 150-379 Neutrophils 53 Lymphs 37 Monocytes 8 Eos 1 Basos 1 Neutrophils (Absolute) 3.3 1.4-7.0 Lymphs (Absolute) 2.3 0.7-3.1 Monocytes(Absolute) 0.5 0.1-0.9 Eos (Absolute) 0.0 0.0-0.4 Baso (Absolute) 0.0 0.0-0.2 Immature Granulocytes 0 Immature Grans (Abs) 0.0 0.0-0.1 MICROALBUMIN/CREATININE RATIO, URINE 2016-08-07 Creatinine, Urine 47.5 Not Estab. Microalbumin, Urine 46.7 Not Estab. Microalb/Creat Ratio 98.3 0.0-30.0 LIPID PANEL 2016-08-07 Cholesterol, Total 254 100-199 Triglycerides 255 0-149 HDL Cholesterol 41 >39 VLDL Cholesterol Nate 51 5-40 LDL Cholesterol Calc 162 0-99 CMP 2016-08-07 Glucose, Serum 342 65-99 BUN 10 6-24 Creatinine, Serum 0.78 0.76-1.27 eGFR If NonAfricn Am 103 >59 eGFR If Africn Am 119 >59 BUN/Creatinine Ratio 13 9-20 Sodium, Serum 136 134-144 Potassium, Serum 4.2 3.5-5.2 Chloride, Serum 96 96-106 Carbon Dioxide, Total 22 18-29 Calcium, Serum 9.2 8.7-10.2 Protein, Total, Serum 6.8 6.0-8.5 Albumin, Serum 4.0 3.5-5.5 Globulin, Total 2.8 1.5-4.5 A/G Ratio 1.4 1.1-2.5 Bilirubin, Total 0.4 0.0-1.2 Alkaline Phosphatase, S 107 39-117 AST (SGOT) 19 0-40 ALT (SGPT) 27 0-44 MICROALBUMIN, URINE (IN HOUSE) 2016-08-07 MICROALBUMIN Abnormal Lot # [id number] Exp date 2017-07-31 Clarity Clear Color Yellow ALB 80mg/L CRE 50mg/dL A:C (IN HOUSE) 30-300mg/g Control Control Lot # Exp date A1C (IN HOUSE) 2016-08-07 A1C IN HOUSE >14.0 4.3 - 5.6 % Previous A1c >14.0 Lot [id number] Exp date 03/2018 PROCEDURES Procedure Date Ordered Result Body Site MICROALBUMIN, QUANTITATIVE Aug 07, 2016 GLYCATED HEMOGLOBIN TEST Aug 07, 2016 COMPLETE CBC W/AUTO DIFF WBC Aug 07, 2016 MICROALBUMIN, SEMIQUANT Aug 07, 2016 VENIPUNCT, ROUTINE* Aug 07, 2016 ASSAY OF URINE CREATININE Aug 07, 2016 LIPID PANEL Aug 07, 2016 COMPREHEN METABOLIC PANEL Aug 07, 2016 ASSAY THYROID STIM HORMONE Aug 07, 2016 IMMUNIZATIONS No Known Immunizations MEDICAL (GENERAL) HISTORY [...]
--- OUTSIDE RECORDS SUMMARY | 2018-01-21 19:09 | XMS REPORT ---
Author Author MICHAEL MOORE Organization [employer] Address Unknown Phone Unavailable Care Team Providers Care Health Screener Name Role Phone MICHAEL MOORE CP Unavailable Allergies, Adverse Reactions, Alerts Substance Reaction Event Type Sudafed anxiety, hallucinations Drug Allergy Neurontin Info Not Available Drug Allergy Celebrex Info Not Available Drug Allergy Morphine Info Not Available Drug Allergy Codeine Info Not Available Drug Allergy Problems Problem Type Condition Code Onset Dates Condition Status Assessment Diabetes E11.9 Active Problem Bipolar 1 disorder F31.9 Active Problem Cough R05 Active Problem Routine health maintenance Z00.00 Active Problem Diabetes E11.9 Active Problem Encounter for counseling and surveillance for drug use disorder Z71.51 Active Problem History of arthritis Z87.39 Active Problem Hyperlipidemia E78.5 Active Problem GERD (gastroesophageal reflux disease) K21.9 Active Problem Hypertension I10 Active Assessment History of arthritis Z87.39 Active Assessment Hyperlipidemia E78.5 Active Assessment Encounter for counseling and surveillance for drug use disorder Z71.51 Active Assessment Hypertension I10 Active Assessment Bipolar 1 disorder F31.9 Active Assessment GERD (gastroesophageal reflux disease) K21.9 Active Medications Medication Code System Code Instructions Start Date End Date Status Dosage Famotidine [facility] [address]-75 20 mg Orally Once a day September 22, 2015 1 tablet at bedtime Simvastatin [facility] [address]-65 40 MG Orally Once a day before bed Aug 03, 2014 1 tablet by Oral route 1 time per day Repository Benzonatate [facility] [address]-45 200 MG Orally Three times a day September 19, 2015 1 capsule as needed doxepin NDC 0 25 oral Once a day September 16, 2014 1 capsule by Oral route 1 time per day QHS Victoza [facility] [address]-62 18 MG/3ML Subcutaneous Once a day Mar 25, 2015 1.8mg tramadol NDC 0 50 mg by oral route 3 times a day prn September 24, 2014 1 tablet metformin [facility] [address]-64 1,000 mg oral 2 times a day Jun 18, 2014 take 1 tablet by Oral route with morning and evening meals 2 times per day Easy Touch Pen [place] [facility] 8496-430934 32G X 5 MM Once a day Mar 25, 2015 as directed Accu-Chek Advantage Test ND 0 In Vitro September 22, 2015 as directed One Touch Delica Lancets [facility] 0 September 22, 2015 as directed Invega [facility] [address]-71 9 MG Orally Once a day Aug 04, 2014 1 tablet by Oral route 1 time per day at night Glucotrol [facility] [address]-65 10 MG Aug 03, 2014 2 tablet by Oral route 2 times per day Lisinopril-Hydrochlorothiazide [facility] [address]-88 20-12.5 MG Orally Once a day Aug 03, 2014 take 1 tablet by Oral route 1 time per day Repository Wellbutrin XL [facility] [address]-45 150 MG Orally Once a day September 22, 2015 1 tablet in the morning Accu-Chek Bernice SmartView [facility] [address]-78 w/Device September 22, 2015 as directed Procedures Procedure Coding System Code Date Office Visit, Est Pt., Level 4 CPT-4 13160 October 25, 2015 No Charge CPT-4 71470 October 25, 2015 Vital Signs Date/Time: October 25, 2015 Temperature 98.3 F Weight 141.8 lbs Height 66 in BMI 22.88 Index Blood Pressure Diastolic 90 mmHg Blood Pressure Systolic 142 mmHg Cardiac Monitoring Heart Rate 84 bpm Results No Known Results Summary Purpose [employer] Submission
--- OUTSIDE RECORDS SUMMARY | 2018-01-21 19:10 | XMS REPORT ---
Author Author MICHAEL MOORE [facility] Address [address] [place] [address] Care Team Providers Care Machine Set Up Technician Name Role Phone MICHAEL MOORE Unavailable PROBLEMS Type Condition ICD9-CM Code CYU77-ZW Code Onset Dates Condition Status SNOMED Code Problem Cough R05 Active 43658329 Problem Routine health maintenance Z00.00 Active 150894033 Problem GERD (gastroesophageal reflux disease) K21.9 Active 731363258 Problem Type 2 diabetes mellitus with hyperglycemia E11.65 Active 31606440 Problem prison current use of insulin Z79.4 Active 227788136 Problem Bipolar 1 disorder F31.9 Active 242943817 Problem Hyperlipidemia E78.5 Active 41786353 Problem Arthritis M19.90 Active 8789499 Problem Encounter for counseling and surveillance for drug use disorder Z71.51 Active 505243159 Problem Other chronic gastritis without hemorrhage K29.50 Active 2358807 Problem Hiatal hernia K44.9 Active 64596469 Problem Reflux esophagitis K21.0 Active 888737689 Problem Esophageal candidiasis B37.81 Active 89961923 Problem Hypertension I10 Active 90606928 ALLERGIES Substance Reaction Event Type Date Status Sudafed anxiety, hallucinations Drug Allergy May, Active Neurontin Unknown Drug Allergy May, Active Celebrex Unknown Drug Allergy May, Active Morphine Unknown Drug Allergy May, Active Codeine Unknown Drug Allergy May, Active ENCOUNTERS Encounter Location Date Diagnosis [facility], [place] [address] [facility] [id number] [address] Nov, [facility], [place] [address] [facility] [id number], [place] [address] October, [facility], [place] [address] [id number], [place] [address] October, [facility], [place] [id number] [place] [address] 30[address] October, [place] [id number] [place] [address]17- 4830 October, Hyperlipidemia E78.5 ; Type 2 diabetes mellitus with hyperglycemia E11.65 ; GERD (gastroesophageal reflux disease) K21.9 ; Arthritis M19.90 ; Bipolar 1 disorder F31.9 and Cough R05 [facility] [id number] [place] [address]27 [address]57 Sep, Cellulitis of right thumb L03.011 [place] [id number] [place] [address] 39345- 6422 Jul, Arthritis M19.90 [facility] [place] [id number] [place] [address] 8[address]49 -3163 May, Paronychia of finger of right hand L03.011 [place] [id number] [place] [address]29- 5739 May, Paronychia of finger of right hand L03.011 [facility] [place] [id number] [place] [address]40 -2229 May, Paronychia of finger of right hand L03.011 [place] [id number] [place] [address] 42163- 7636 May, Paronychia of finger of right hand L03.011 and Arthritis M19.90 [place] [id number] [place] [address] 06296- 0409 May, Hypertension I10 ; Hyperlipidemia E78.5 ; Type 2 diabetes mellitus with hyperglycemia E11.65 ; prison current use of insulin Z79.4 ; Edema of face R60.0 ; Acute non-recurrent maxillary sinusitis J01.00 and GERD ( gastroesophageal reflux disease) K21.9 [place] [id number] [place] [address] 93886- 6890 October, Diabetes type 2, uncontrolled E11.65 ; Hypertension I10 ; GERD (gastroesophageal reflux disease) K21.9 ; Hyperlipidemia E78.5 and Arthritis M19.90 [facility], [place] [id number] [place] [address] 55987- 7466 14 Aug, 2016 [facility], [place] [id number] [place] [address] 46137- 6448 08 Aug, 2016 [facility], [place] [id number] [place] [address] 38598- 8334 Aug, Diabetes E11.9 ; Hypertension I10 ; Hyperlipidemia E78.5 and GERD (gastroesophageal reflux disease) K21.9 [facility] [id number] [place] [address] 05637 -5955 Jul, [facility], [place] [address] [address] Sep, Diabetes E11.9 ; GERD (gastroesophageal reflux disease) K21.9 ; Hypertension I10 ; Hyperlipidemia E78.5 ; History of arthritis Z87.39 ; Bipolar 1 disorder F31.9 and Encounter for counseling and surveillance for drug use disorder Z71.51 [place] [id number] [place] [address] 46957- 0807 Sep, [place] [id number] [place] [address] 57333- 3187 Aug, [facility], [place] [id number] [place] [address] 00772- 0556 Aug, Routine health maintenance Z00.00 ; Diabetes E11.9 ; GERD ( gastroesophageal reflux disease) K21.9 ; History of arthritis Z87.39 ; Hypertension I10 ; Hyperlipidemia E78.5 ; Bipolar 1 disorder F31.9 and Cough R05 [place] [id number] [place] [address] 82459- 0809 Aug, [facility], [place] [id number] [place] [address] 32466- 6684 Aug, Cough R05 [facility], [place] [address] [address] 7059 Mar, GERD (gastroesophageal reflux disease) K21.9 and Esophageal yeast infection B37.81 [place] [id number] [place] [address] 36774- 6401 Mar, [place] [id number] [place] [address] 66136- 1330 Mar, Difficulty swallowing R13.10 [place] [id number] [place] [address] 39003- 9189 Mar, Cellulitis of finger of left hand L03.012 [place] [id number] [place] [address] 65748- 0742 Mar, Infection of nail bed of finger of left hand L03.012 and Type 2 diabetes mellitus with other skin complications E11.628 [place] [id number] [place] [address] 39291- 1366 Mar, [place] [id number] [place] [address] 01598- 2146 Dec, [place] [id number] [place] [address] 48611- 6578 Dec, [place] [id number] [place] [address] 42297- 5531 Dec, Hand joint pain 719.44 ; Diabetes mellitus without mention of complication, type II or unspecified type, uncontrolled 250.02 ; Bipolar I disorder, most recent episode (or current) mixed, severe, specified as with psychotic behavior 296.64 ; Essential hypertension, benign 401.1 ; Other and unspecified hyperlipidemia 272.4 and Acute gastritis without mention of hemorrhage 535.00 [place] [id number] [place] [address] 24396- 3737 Nov, [place] [id number] [place] [address] 83032- 6197 Nov, [place] [id number] [place] [address] 36283- 8055 Nov, Hand joint pain 719.44 and Upper respiratory infection, acute 465.9 [facility] [address] [id number] [place] [address]- 5303 14 Sep, 2014 [facility] [address] [facility] [id number], [place] [address]80 13 Sep, 2014 [facility] [address] [facility] [id number] [place] [address]- 3807 27 Aug, 2014 [facility] [address] [id number], [place] [address] 1163 27 Aug, 2014 [facility] [address] [facility] [id number] [place] [address]- 8402 Aug, [facility] [address] [facility] [id number] [place] [address]- 4358 Aug, [facility] [address], [place] [address]- 4702 Aug, [facility] [address] [facility] [id number], [place] [address]- 8272 Aug, [facility] [address] [id number], [place] [address]- 4729 Aug, [facility] [address] [facility] [id number], [place] [address]- 2802 Aug, [facility] [address] [facility] [id number], [place] [address]- 4899 Aug, [facility] [place] [facility] [address] [facility] [id number], [place] [address]- 4591 Aug, [facility] [place] [facility] [address] [facility] [id number], [place] [address]- 7341 Aug, [facility] [place] [facility] [address] [facility] [id number], [place] [address]- 7584 Aug, [facility] [place] [facility] [address], [place] [address]- 9684 Aug, [facility] [place] [facility] [address] [id number] [place] [address]- 3636 Aug, 2014 [facility] [place] [facility] [address] [id number] [place] [address]- 8243 Aug, 2014 [facility] [place] [facility] [address] [id number] [place] [address]- 3454 Aug, 2014 [facility] [place] [facility] [address] [id number] [place] [address]- 1243 Aug, 2014 [facility] [place] [facility] [address] [id number] [place] [address]- 7721 Aug, 2014 [facility] [place] [facility] [address] [id number] [place] [address]- 6880 Aug, 2014 [facility] [place] [facility] [address] [facility] [id number] [place] [address]- 6152 Aug, 2014 [facility] [place] [facility] [address] [id number] [place] [address]- 6127 Aug, 2014 [facility] [place] [facility] [address] [id number] [place] [address]- 5366 Aug, 2014 [facility] [place] [facility] [address] [facility] [id number] [place] [address]- 1829 Jul, [facility] [place] [facility] [address] [id number] [place] [address]- 4947 Jul, [facility] [place] [facility] [address] [id number] [place] [address]- 6814 Jul, [facility] [place] [facility] [address] [id number] [place] [address]- 0244 Jul, [facility] [place] [facility] [address] [id number] [place] [address]- 9771 May, [facility] [place] [facility] [address] [id number] [place] [address]- 5125 May, [facility] [place] [facility] [address] [id number] [place] [address]- 3641 May, [facility] [place] [facility] [address] [id number] [place] [address]- 1173 May, [facility] [place] [facility] [address] [id number] [place] [address]- 4103 May, [facility] [place] [facility] [address] [id number] [place] [address]- 3424 May, [facility] [place] [facility] [address] [id number] [place] [address]- 2177 May, [facility] [place] [facility] [address] [id number] [place] [address]- 4584 May, [facility] [place] [facility] [address] [id number] [place] [address]- 8114 May, [facility] [place] [facility] [address] [id number] [place] [address]- 7830 May, [facility] [place] [facility] [address] [id number] [place] [address]- 6150 Mar, [facility] [place] [facility] [address] [id number] [place] [address]- 1578 Mar, [facility] [place] [facility] [address] [id number] [place] [address]- 6654 Mar, [facility] [place] [facility] [address] [id number] [place] [address]- 0836 Mar, [facility] [place] [facility] [address] [id number], [place] [address]- 0493 Mar, [facility] [place] [facility] [address] [id number] [place] [address]- 8070 Mar, [facility] [place] [facility] [address] [id number], [place] [address]- 9946 Mar, [facility] [place] [facility] [address] [id number], [place] [address]- 2840 Mar, [facility] [place] [facility] [address] [id number] [place] [address]- 8993 Mar, [facility] [place] [facility] [address] [id number] [place] [address]- 9996 Mar, [facility] [place] [facility] [address] [id number] [place] [address]- 0826 Mar, 2013 [facility] [place] [facility] [address] [id number] [place] [address]- 0754 Mar, [facility] [place] [facility] [address] [id number] [place] [address]- 9469 Mar, [facility] [place] [facility] [address] [id number] [place] [address]- 1766 Mar, [facility] [place] [facility] [address] [id number] [place] [address]- 0483 26 Mar, 2013 [facility] [place] [facility] [address] [id number] [place] [address]- 4432 26 Mar, 2013 [facility] [place] [facility] [address] [id number] [place] [address] 2540 24 Mar, 2013 [facility] [place] [facility] [address] [id number] [place] [address] 2547 24 Mar, 2013 [facility] [place] [facility] [address] [id number] [place] [address] 2546 22 Mar, 2013 [facility] [place] [facility] [address] [id number] [place] [address] 2544 22 Mar, 2013 [facility] [place] [facility] [address] [id number] [place] [address] 2546 15 Mar, 2013 [facility] [place] [facility] [address] [id number] [place] [address] 2546 15 Mar, 2013 [facility] [place] [facility] [address] [id number] [place] [address] 2546 08 Sep, 2013 [facility] [place] [facility] [address] [id number] [place] [address]- 7622 Mar, [facility] [place] [facility] [address] [id number] [place] [address]- 4671 Mar, [facility] [place] [facility] [address] [id number] [place] [address]- 1061 Mar, [facility] [place] [facility] [address] [id number] [place] [address]- 5561 Mar, [facility] [place] [facility] [address] [id number] [place] [address]- 5307 Mar, [facility] [place] [facility] [address] [id number] [place] [address]- 9626 Jan, [facility] [place] [facility] [address] [id number] [place] [address]- 4499 Jan, [facility] [place] [facility] [address] [id number] [place] [address]- 3281 Jan, [facility] [place] [facility] [address] [id number] [place] [address]- 8860 Jan, [facility] [place] [facility] [address] [id number] [place] [address]- 2853 Jan, [facility] [place] [facility] [address] [id number] [place] [address]- 2662 Jan, [facility] [place] [facility] [address] [id number] [place] [address]- 0579 Jan, [facility] [place] [facility] [address] [id number], [place] [address]- 1316 Jan, [facility] [place] [facility] [address] [id number] [place] [address]- 8113 Jan, [facility] [place] [facility] [address] [id number] [place] [address]- 6268 Jan, [facility] [place] [facility] [address] [id number] [place] [address]- 2266 Dec, [facility] [place] [facility] [address] [id number] [place] [address]- 5370 18 Dec, 2013 [facility] [place] [facility] [address] [id number] [place] [address]- 4468 16 Dec, 2013 [facility] [place] [facility] [address] [id number] [place] [address]- 2028 14 Dec, 2013 [facility] [place] [facility] [address] [id number] [place] [address]- 7052 Dec, [facility] [place] [facility] [address] [id number] [place] [address]- 0779 Dec, [facility] [place] [facility] [address] [id number] [place] [address]- 2290 Dec, [facility] [place] [facility] [address] [id number] [place] [address]- 2257 Dec, [facility] [place] [facility] [address] [id number] [place] [address]- 3794 Dec, [facility] [place] [facility] [address] [id number] [place] [address]- 7233 Nov, [facility] [place] [facility] [address] [id number] [place] [address]- 8375 Nov, [facility] [place] [facility] [address] [id number] [place] [address]- 9019 October, [facility] [place] [facility] [address] [id number] [place] [address]- 8397 October, [facility] [place] [facility] [address] [id number] [place] [address]- 2008 Sep, [facility] [place] [facility] [address] [id number] [place] [address]- 9033 Sep, [facility] [place] [facility] [address] [id number] [place] [address]- 1488 Sep, [facility] [place] [facility] [address] [id number] [place] [address]- 8829 Sep, [facility] [place] [facility] [address] [id number] [place] [address]- 2892 Aug, [facility] [place] [facility] [address] [id number] [place] [address]- 7931 Aug, [facility] [place] [facility] [address] [id number] [place] [address]- 3586 Aug, [facility] [place] [facility] [address] [id number] [place] [address]- 8946 Aug, [facility] [place] [facility] [address] [id number] [place] [address]- 5232 Aug, [facility] [place] [facility] [address] [id number] [place] [address]- 8548 Aug, [facility] [place] [facility] [address] [id number] [place] [address]- 1873 Jul, [facility] [place] [facility] [address] [id number] [place] [address]- 3227 Jul, [facility] [place] [facility] [address] [id number] [place] [address]- 1904 May, [facility] [place] [facility] [address] [id number] [place] [address]- 4830 May, [facility] [place] [facility] [address] [id number] [place] [address]- 0369 May, [facility] [place] [facility] [address] [id number] [place] [address]- 0689 May, [facility] [place] [facility] [address] [id number] [place] [address]- 2546 May, [facility] [place] [facility] [address] [id number] [place] [address]- 2546 May, [facility] [place] [facility] [address] [id number] [place] [address]- 2546 Mar, [facility] [place] [facility] [address] [id number], [place] [address]- 8105 Dec, [facility] [place] [address] [id number] [address]337 Dec, [facility] [place] [address] [id number] 9848 October, [facility] [place] [address] [address]- 7873 October, [facility] [place] [address] [address]- 7602 October, [facility] [place] [address] 6693 October, [facility] [place] [address] [address]- 9061 October, [facility] [place] [address] [address]- 7531 October, [facility] [place] [address] [address]- 0933 Aug, [facility] [place] [address] 1170 Aug, [facility] [place] [address] [id number] [address]- 2970 Aug, IMMUNIZATIONS No Known Immunizations SOCIAL HISTORY Never Assessed REASON FOR VISIT infected finger--tcuppettRN, -Right index finger infection. Was prescribed antibiotics last week. Has not improved PLAN OF CARE Activity Details Follow Up 2 - 3 Days Reason: VITAL SIGNS Height 66 in 2017-05-27 Weight 130.2 lbs 2017-05-27 Temperature 97.7 degrees Fahrenheit 2017-05-27 Heart Rate 96 bpm 2017-05-27 Respiratory Rate 20 2017-05-27 BMI 21.01 kg/m2 2017-05-27 Blood pressure systolic 100 mmHg 2017-05-27 Blood pressure diastolic 72 mmHg 2017-05-27 MEDICATIONS Medication Instructions Dosage Frequency Start Date End Date Duration Status Lantus SoloStar 100 UNIT/ML Subcutaneous at bedtime Inject 10 units 16 May, 2017 30 days Active Glucocard Expression Test 1 subcutaneously 2 times a day test 2 times per day 12h 14 Aug, 2016 10 days Active Simvastatin 10 mg Orally Once a day 1 tablet in the evening 24h Aug, 90 days Active tramadol 50 mg by oral route 3 times a day prn 1 tablet Aug, Not-Taking GlipiZIDE 10 MG Orally Once a day 1 tablet 24h Aug, 30 days Active Benzonatate 200 MG Orally Three times a day 1 capsule as needed 8h Aug, Not-Taking Nexium 24HR 20 mg Orally Once a day 1 capsule 24h Aug, 30 days Active Lisinopril 10 MG Orally Once a day 1 tablet 24h October, 30 days Active Clindamycin HCl 300 MG Orally every 8 hrs 1 capsule 8h May,May 10 days Active MetFORMIN HCl ER 750 MG Orally twice a day 1 tablet twice a day 12h October 30 days Active doxepin 25 oral Once a day 1 capsule by Oral route 1 time per day QHS 24h Aug, Not-Taking Wellbutrin XL 150 MG Orally Once a day 1 tablet in the morning 24h Aug, 30 day(s) Not-Taking Levemir FlexTouch 100 UNIT/ML Subcutaneous Once a day 10 units at bedtime 24h Aug, 90 days Not-Taking Tramadol HCl 50 mg Orally TID PRN 1 tablet as needed May,May 14 days Active Invega 9 MG Orally Once a day 1 tablet by Oral route 1 time per day at night 24h 04 Aug, 2014 Not-Taking RESULTS No Results PROCEDURES Procedure Date Ordered Result Body Site CULTURE BACTERIA ANAEROBIC May 27, 2017 CULTURE, BACTERIA, OTHER May 27, 2017 INSTRUCTIONS MEDICATIONS ADMINISTERED No Known Medications MEDICAL [...]
--- OUTSIDE RECORDS SUMMARY | 2018-01-21 19:10 | XMS REPORT ---
Author Author MICHAEL MOORE Organization [facility] Address [address] [place] [address] Care Team Providers Care Cook Fruit Name Role Phone OSCAR MICHAEL Unavailable PROBLEMS Type Condition ICD9-CM Code QZH42-NV Code Onset Dates Condition Status SNOMED Code Problem Hyperlipidemia E78.5 Active 04005230 Problem Hypertension I10 Active 36171528 Problem GERD (gastroesophageal reflux disease) K21.9 Active 681322021 Problem Arthritis M19.90 Active 9849949 Problem Diabetes type 2, uncontrolled E11.65 Active 712680338 Problem Routine health maintenance Z00.00 Active 827433714 Problem Cough R05 Active 37911024 Problem Encounter for counseling and surveillance for drug use disorder Z71.51 Active 170945330 Problem Bipolar 1 disorder F31.9 Active 833691439 ALLERGIES No Known Allergies SOCIAL HISTORY No smoking Hx information available PLAN OF CARE VITAL SIGNS Height 66 in 2016-07-23 Weight 140.6 lbs 2016-07-23 Temperature 98.1 degrees Fahrenheit 2016-07-23 Heart Rate 80 bpm 2016-07-23 Respiratory Rate 20 2016-07-23 BMI 22.69 kg/m2 2016-07-23 Blood pressure systolic 148 mmHg 2016-07-23 Blood pressure diastolic 90 mmHg 2016-07-23 MEDICATIONS No Known Medications RESULTS No Results PROCEDURES No Known procedures IMMUNIZATIONS No Known Immunizations
--- OUTSIDE RECORDS SUMMARY | 2018-01-21 19:10 | XMS REPORT ---
Author SILVANO Hoffman [facility] eClinicalWorks Address Unknown Phone Unavailable Care Team Providers Care Canceling And Cutting Control Clerk Name Role Phone SILVANO DONATO CP Unavailable Allergies, Adverse Reactions, Alerts Substance Reaction Event Type Sudafed anxiety, hallucinations Drug Allergy Neurontin Info Not Available Drug Allergy Celebrex Info Not Available Drug Allergy Morphine Info Not Available Drug Allergy Codeine Info Not Available Drug Allergy Problems Problem Type Condition Code Onset Dates Condition Status Assessment Cellulitis of finger of left hand L03.012 Active [...] Instructions Start Date End Date Status Dosage Omeprazole [facility] [address]-80 20 MG Orally Once a day September 23, 2014 take 1 capsule by Oral route before a meal 1 time per day Repository Simvastatin [facility] [address]-88 40 MG Orally Once a day before bed Aug 03, 2014 1 tablet by Oral route 1 time per day Repository tramadol [place] 0 50 mg September 24, 2014 take 1 tablet (50 mg) by oral route every 4-6 hours as needed PRN pain doxepin [facility] 0 25 oral Once a day September 16, 2014 1 capsule by Oral route 1 time per day QHS Lisinopril-Hydrochlorothiazide [facility] [address]-87 20-12.5 MG Orally Once a day Aug 03, 2014 take 1 tablet by Oral route 1 time per day Repository Invega [facility] [address]-53 9 MG Orally Once a day Aug 04, 2014 1 tablet by Oral route 1 time per day at night Bactrim DS [facility] [address]-42 800-160 MG Orally 2 times a day Apr 12, 2015 Apr 22, 2015 1 tablet Glucotrol [facility] [address]-29 10 MG Aug 03, 2014 2 tablet by Oral route 2 times per day Victoza [facility] [address]-62 18 MG/3ML Subcutaneous Once a day Mar 25, 2015 1.8mg Easy Touch Pen Bloomingrose [facility] 8496-773994 32G X 5 MM Once a day Mar 25, 2015 as directed Viibryd [facility] [address]-58 40 MG Orally Once a day Aug 04, 2014 1 Tablet by Oral route 1 time per day metformin [facility] [address]-41 1,000 mg oral 2 times a day Jun 18, 2014 take 1 tablet by Oral route with morning and evening meals 2 times per day Procedures Procedure Coding System Code Date THER/PROPH/DIAG INJ, SC/IM CPT-4 04723 Apr 13, 2015 Office Visit, Est Pt., Level 3 CPT-4 28336 Apr 13, 2015 ROCEPHIN 1 GM (IM) CPT-4 J0696 Apr 13, 2015 Vital Signs Date/Time: Apr 13, 2015 Temperature 97.6 F Weight 165.2 lbs Height 66 in BMI 26.66 Index Blood Pressure Diastolic 90 mmHg Blood Pressure Systolic 142 mmHg Cardiac Monitoring Heart Rate 86 bpm Results No Known Results Summary Purpose eClinicalWorks Submission
--- OUTSIDE RECORDS SUMMARY | 2018-01-21 19:10 | XMS REPORT ---
Author SILVANO Hoffman [facility] eClinicalWorks Address Unknown Phone Unavailable Care Team Providers Care Rib Matcher And Fitter Name Role Phone SILVANO DONATO CP Unavailable Allergies No Known Allergies Problems Problem Type Condition Code Onset Dates Condition Status Problem Plantar fascial fibromatosis 728.71 Active Problem [...] soft tissues of limb 729.5 Active Medications No Known Medications Results No Known Results Summary Purpose eClinicalWorks Submission
--- OUTSIDE RECORDS SUMMARY | 2018-01-21 19:10 | XMS REPORT ---
Author Author SILVANO DONATO [facility] eClinicalWorks Address Unknown Phone Unavailable Care Team Providers Care Injection Molding Machine Setter Name Role Phone SILVANO DONATO CP Unavailable Allergies No Known Allergies Problems Problem Type Condition Code Onset Dates Condition Status Assessment Difficulty swallowing R13.10 Active Problem Plantar fascial fibromatosis 728.71 Active [...]
--- OUTSIDE RECORDS SUMMARY | 2018-01-21 19:10 | XMS REPORT ---
Author Author MICHAEL MOORE [facility] Address [address] [place] [address] Care Team Providers Care Hand Glass Cutter Name Role Phone MICHAEL MOORE Unavailable PROBLEMS Type Condition ICD9-CM Code LYU91-PP Code Onset Dates Condition Status SNOMED Code Problem Cough R05 Active 94579899 Problem Routine health maintenance Z00.00 Active 916403463 Problem GERD (gastroesophageal reflux disease) K21.9 Active 818577714 Problem Type 2 diabetes mellitus with hyperglycemia E11.65 Active 78306388 Problem group home current use of insulin Z79.4 Active 698384566 Problem Bipolar 1 disorder F31.9 Active 809539571 Problem Hyperlipidemia E78.5 Active 90593095 Problem Arthritis M19.90 Active 7949898 Problem Encounter for counseling and surveillance for drug use disorder Z71.51 Active 448027443 Problem Other chronic gastritis without hemorrhage K29.50 Active 7468100 Problem Hiatal hernia K44.9 Active 31621326 Problem Reflux esophagitis K21.0 Active 784430476 Problem Esophageal candidiasis B37.81 Active 22490139 Problem Hypertension I10 Active 49577626 ALLERGIES Substance Reaction Event Type Date Status Sudafed anxiety, hallucinations Drug Allergy May, Active Neurontin Unknown Drug Allergy May, Active Celebrex Unknown Drug Allergy May, Active Morphine Unknown Drug Allergy May, Active Codeine Unknown Drug Allergy May, Active ENCOUNTERS Encounter Location Date Diagnosis [facility] [address] [facility] [id number] [address] Nov, [facility] [address] [facility] [id number], [place] [address] October, [facility] [address] [id number] [address] October, [facility] [id number] [place] [address] 79951- 5188 October, [place] [id number] [place] [address] 27837- 9262 October, Hyperlipidemia E78.5 ; Type 2 diabetes mellitus with hyperglycemia E11.65 ; GERD (gastroesophageal reflux disease) K21.9 ; Arthritis M19.90 ; Bipolar 1 disorder F31.9 and Cough R05 [facility] [id number] [place] [address]9612 Sep, Cellulitis of right thumb L03.011 [place] [id number] [place] [address] 79150- 0082 Jul, Arthritis M19.90 [facility] [place] [id number] [place] [address] 36[address] -5333 May, Paronychia of finger of right hand L03.011 [place] [id number] [place] [address] 47974- 5839 May, Paronychia of finger of right hand L03.011 [facility] [place] [id number] [place] [address] 15787 -1246 May, Paronychia of finger of right hand L03.011 [place] [id number] [place] [address] 37799- 2695 May, Paronychia of finger of right hand L03.011 and Arthritis M19.90 [place] [id number] [place] [address] 24148- 7809 May, Hypertension I10 ; Hyperlipidemia E78.5 ; Type 2 diabetes mellitus with hyperglycemia E11.65 ; group home current use of insulin Z79.4 ; Edema of face R60.0 ; Acute non-recurrent maxillary sinusitis J01.00 and GERD ( gastroesophageal reflux disease) K21.9 [place] [id number] [place] [address]39- 7137 October, Diabetes type 2, uncontrolled E11.65 ; Hypertension I10 ; GERD (gastroesophageal reflux disease) K21.9 ; Hyperlipidemia E78.5 and Arthritis M19.90 [facility] [id number] [place] [address] 71782- 4251 14 Aug, 2016 [facility] [id number] [place] [address] 93898- 7788 08 Aug, 2016 [facility] [id number] [place] [address] 62530- 1363 Aug, Diabetes E11.9 ; Hypertension I10 ; Hyperlipidemia E78.5 and GERD (gastroesophageal reflux disease) K21.9 [facility] [id number] [place] [address] 32823 -7501 Jul, [facility] [address] [address] Sep, Diabetes E11.9 ; GERD (gastroesophageal reflux disease) K21.9 ; Hypertension I10 ; Hyperlipidemia E78.5 ; History of arthritis Z87.39 ; Bipolar 1 disorder F31.9 and Encounter for counseling and surveillance for drug use disorder Z71.51 [place] [id number] [place] [address] 63086- 6815 Sep, [place] [id number] [place] [address] 54887- 8901 Aug, [facility] [id number] [place] [address] 97610- 8649 Aug, Routine health maintenance Z00.00 ; Diabetes E11.9 ; GERD ( gastroesophageal reflux disease) K21.9 ; History of arthritis Z87.39 ; Hypertension I10 ; Hyperlipidemia E78.5 ; Bipolar 1 disorder F31.9 and Cough R05 [place] [id number] [place] [address] 60211- 9064 Aug, [facility] [id number] [place] [address] 28022- 7573 Aug, Cough R05 [facility] [address] [address]- 8038 Mar, GERD (gastroesophageal reflux disease) K21.9 and Esophageal yeast infection B37.81 [place] [id number] [place] [address] 84968- 2420 Mar, [place] [id number] [place] [address] 73354- 4293 Mar, Difficulty swallowing R13.10 [place] [id number] [place] [address] 19204- 2656 Mar, Cellulitis of finger of left hand L03.012 [place] [id number] [place] [address] 68198- 5547 Mar, Infection of nail bed of finger of left hand L03.012 and Type 2 diabetes mellitus with other skin complications E11.628 [place] [id number] [place] [address] 94393- 3409 Mar, [place] [id number] [place] [address] 43957- 0201 Dec, [place] [id number] [place] [address] 53857- 2502 Dec, [place] [id number] [place] [address] 90514- 2859 Dec, Hand joint pain 719.44 ; Diabetes mellitus without mention of complication, type II or unspecified type, uncontrolled 250.02 ; Bipolar I disorder, most recent episode (or current) mixed, severe, specified as with psychotic behavior 296.64 ; Essential hypertension, benign 401.1 ; Other and unspecified hyperlipidemia 272.4 and Acute gastritis without mention of hemorrhage 535.00 [place] [id number] [place] [address] 30055- 4621 Nov, [place] [id number] [place] [address] 85010- 7713 Nov, [place] [id number] [place] [address] 18143- 8898 Nov, Hand joint pain 719.44 and Upper respiratory infection, acute 465.9 [facility] [address] [id number] [place] [address]- 4338 14 Sep, 2014 [facility] [address] [facility] [id number] [address] 13 Sep, 2014 [facility] [address] [facility] [place] [id number] [place] [address]- 4758 27 Aug, 2014 [facility] [address] [id number] [address] 3716 27 Aug, 2014 [facility] [address] [facility] [place] [id number] [place] [address]- 6038 Aug, [facility] [address] [facility] [place] [id number] [place] [address]- 6654 Aug, [facility] [address] [address]- 0804 Aug, [facility] [address] [facility] [place] [id number], [place] [address]- 2525 Aug, [facility] [address] [id number] [address] 1191 Aug, [facility] [address] [facility] [place] [id number], [place] [address]- 1458 Aug, [facility] [address] [facility] [place] [id number], [place] [address]- 5000 Aug, [facility] [place] [facility] [address] [facility] [place] [id number], [place] [address]- 9179 Aug, [facility] [place] [facility] [address] [facility] [place] [id number], [place] [address]- 5272 Aug, [facility] [place] [facility] [address] [facility] [place] [id number][place] [address]- 9829 Aug, [facility] [place] [facility] [address] [address]- 6873 Aug, [facility] [place] [facility] [address] [id number] [place] [address]- 3505 Aug, 2014 [facility] [place] [facility] [address] [id number] [place] [address]- 3573 Aug, 2014 [facility] [place] [facility] [address] [id number] [place] [address]- 2075 Aug, 2014 [facility] [place] [facility] [address] [id number] [place] [address]- 7722 Aug, 2014 [facility] [place] [facility] [address] [id number] [place] [address]- 8466 Aug, 2014 [facility] [place] [facility] [address] [id number] [place] [address]- 0406 Aug, 2014 [facility] [place] [facility] [address] [facility] [place] [id number] [place] [address]- 8724 Aug, 2014 [facility] [place] [facility] [address] [id number] [place] [address]- 5535 Aug, 2014 [facility] [place] [facility] [address] [id number] [place] [address]- 1799 Aug, 2014 [facility] [place] [facility] [address] [facility] [place] [id number] [place] [address]- 7084 Jul, [facility] [place] [facility] [address] [id number] [place] [address]- 7778 Jul, [facility] [place] [facility] [address] [id number] [place] [address]- 7606 Jul, [facility] [place] [facility] [address] [id number] [place] [address]- 0872 Jul, [facility] [place] [facility] [address] [id number] [place] [address]- 5077 May, [facility] [place] [facility] [address] [id number] [place] [address]- 4791 May, [facility] [place] [facility] [address] [id number] [place] [address]- 3927 May, [facility] [place] [facility] [address] [id number] [place] [address]- 2415 May, [facility] [place] [facility] [address] [id number] [place] [address]- 5436 May, [facility] [place] [facility] [address] [id number] [place] [address]- 6286 May, [facility] [place] [facility] [address] [id number] [place] [address]- 0472 May, [facility] [place] [facility] [address] [id number] [place] [address]- 6470 May, [facility] [place] [facility] [address] [id number] [place] [address]- 1644 May, [facility] [place] [facility] [address] [id number] [place] [address]- 5627 May, [facility] [place] [facility] [address] [id number] [place] [address]- 2191 Mar, [facility] [place] [facility] [address] [id number] [place] [address]- 2305 Mar, [facility] [place] [facility] [address] [id number] [place] [address]- 1446 Mar, [facility] [place] [facility] [address] [id number] [place] [address]- 1578 Mar, [facility] [place] [facility] [address] [id number], [place] [address]- 0908 Mar, [facility] [place] [facility] [address] [id number] [place] [address]- 6218 Mar, [facility] [place] [facility] [address] [id number], [place] [address]- 7741 Mar, [facility] [place] [facility] [address] [id number], [place] [address]- 3841 Mar, [facility] [place] [facility] [address] [id number] [place] [address]- 5166 Mar, [facility] [place] [facility] [address] [id number] [place] [address]- 8056 Mar, [facility] [place] [facility] [address] [id number] [place] [address]- 2906 Mar, 2013 [facility] [place] [facility] [address] [id number] [place] [address]- 5753 Mar, [facility] [place] [facility] [address] [id number] [place] [address]- 1239 Mar, [facility] [place] [facility] [address] [id number] [place] [address]- 7577 Mar, [facility] [place] [facility] [address] [id number] [place] [address]- 0044 26 Mar, 2013 [facility] [place] [facility] [address] [id number] [place] [address]- 5048 26 Mar, 2013 [facility] [place] [facility] [address] [id number] [place] [address] 2547 24 Mar, 2013 [facility] [place] [facility] [address] [id number] [place] [address] 2545 24 Mar, 2013 [facility] [place] [facility] [address] [id number] [place] [address] 2546 22 Mar, 2013 [facility] [place] [facility] [address] [id number] [place] [address] 2545 22 Mar, 2013 [facility] [place] [facility] [address] [id number] [place] [address] 2546 15 Mar, 2013 [facility] [place] [facility] [address] [id number] [place] [address] 2546 15 Mar, 2013 [facility] [place] [facility] [address] [id number] [place] [address] 2546 08 Sep, 2013 [facility] [place] [facility] [address] [id number] [place] [address]- 1545 Mar, [facility] [place] [facility] [address] [id number] [place] [address]- 3744 Mar, [facility] [place] [facility] [address] [id number] [place] [address]- 8653 Mar, [facility] [place] [facility] [address] [id number] [place] [address]- 5487 Mar, [facility] [place] [facility] [address] [id number] [place] [address]- 7135 Mar, [facility] [place] [facility] [address] [id number] [place] [address]- 8110 Jan, [facility] [place] [facility] [address] [id number] [place] [address]- 7499 Jan, [facility] [place] [facility] [address] [id number] [place] [address]- 6876 Jan, [facility] [place] [facility] [address] [id number] [place] [address]- 2284 Jan, [facility] [place] [facility] [address] [id number] [place] [address]- 7333 Jan, [facility] [place] [facility] [address] [id number] [place] [address]- 0109 Jan, [facility] [place] [facility] [address] [id number] [place] [address]- 0907 Jan, [facility] [place] [facility] [address] [id number], [place] [address]- 1034 Jan, [facility] [place] [facility] [address] [id number] [place] [address]- 5152 Jan, [facility] [place] [facility] [address] [id number] [place] [address]- 4439 Jan, [facility] [place] [facility] [address] [id number] [place] [address]- 8325 Dec, [facility] [place] [facility] [address] [id number] [place] [address]- 4644 18 Dec, 2013 [facility] [place] [facility] [address] [id number] [place] [address]- 2383 16 Dec, 2013 [facility] [place] [facility] [address] [id number] [place] [address]- 9075 14 Dec, 2013 [facility] [place] [facility] [address] [id number] [place] [address]- 5475 Dec, [facility] [place] [facility] [address] [id number] [place] [address]- 6663 Dec, [facility] [place] [facility] [address] [id number] [place] [address]- 3920 Dec, [facility] [place] [facility] [address] [id number] [place] [address]- 9095 Dec, [facility] [place] [facility] [address] [id number] [place] [address]- 2384 Dec, [facility] [place] [facility] [address] [id number] [place] [address]- 0838 Nov, [facility] [place] [facility] [address] [id number] [place] [address]- 9901 Nov, [facility] [place] [facility] [address] [id number] [place] [address]- 7137 October, [facility] [place] [facility] [address] [id number] [place] [address]- 6760 October, [facility] [place] [facility] [address] [id number] [place] [address]- 5197 Sep, [facility] [place] [facility] [address] [id number] [place] [address]- 5636 Sep, [facility] [place] [facility] [address] [id number] [place] [address]- 5821 Sep, [facility] [place] [facility] [address] [id number] [place] [address]- 8818 Sep, [facility] [place] [facility] [address] [id number] [place] [address]- 0136 Aug, [facility] [place] [facility] [address] [id number] [place] [address]- 4578 Aug, [facility] [place] [facility] [address] [id number] [place] [address]- 7156 Aug, [facility] [place] [facility] [address] [id number] [place] [address]- 1296 Aug, [facility] [place] [facility] [address] [id number] [place] [address]- 4932 Aug, [facility] [place] [facility] [address] [id number] [place] [address]- 2737 Aug, [facility] [place] [facility] [address] [id number] [place] [address]- 0837 Jul, [facility] [place] [facility] [address] [id number] [place] [address]- 4119 Jul, [facility] [place] [facility] [address] [id number] [place] [address]- 8417 May, [facility] [place] [facility] [address] [id number] [place] [address]- 4383 May, [facility] [place] [facility] [address] [id number] [place] [address]- 3773 May, [facility] [place] [facility] [address] [id number] [place] [address]- 7654 May, [facility] [place] [facility] [address] [id number] [place] [address]- 2546 May, [facility] [place] [facility] [address] [id number] [place] [address]- 2546 May, [facility] [place] [facility] [address] [id number] [place] [address]- 2546 Mar, [facility] [place] [facility] [address] [id number], [place] [address]- 9144 Dec, [facility] [address] [id number] [address] Dec, [facility] [address] [id number] [address] October, [facility] [id number] [address] October, [facility] [id number] [address] October, [facility] [id number] [address] October, [facility] [id number] [address] October, [facility] [id number] [address] October, [facility] [id number] [address] Aug, [facility] [id number] [address] Aug, [facility] [address] [id number] [address] Aug, IMMUNIZATIONS No Known Immunizations SOCIAL HISTORY Never Assessed REASON FOR VISIT fu finger infection---GASTON Valdez PLAN OF CARE Activity Details Follow Up 2 - 3 Days Reason:Saturday at [facility] SIGNS Height 66 in 2017-05-31 Weight 132.7 lbs 2017-05-31 Temperature 97.8 degrees Fahrenheit 2017-05-31 Heart Rate 98 bpm 2017-05-31 Respiratory Rate 20 2017-05-31 BMI 21.42 kg/m2 2017-05-31 Blood pressure systolic 117 mmHg 2017-05-31 Blood pressure diastolic 68 mmHg 2017-05-31 MEDICATIONS Medication Instructions Dosage Frequency Start Date End Date Duration Status Clindamycin HCl 300 MG Orally every 8 hrs 1 capsule 8h May,May 10 days Active Lantus SoloStar 100 UNIT/ML Subcutaneous at bedtime Inject 10 units October, 30 days Active tramadol 50 mg by oral route 3 times a day prn 1 tablet Aug, Not-Taking Nexium 24HR 20 mg Orally Once a day 1 capsule 24h Aug, 30 days Active Invega 9 MG Orally Once a day 1 tablet by Oral route 1 time per day at night 24h Aug, Not-Taking GlipiZIDE 10 MG Orally Once a day 1 tablet 24h Aug, 30 days Active Lisinopril 10 MG Orally Once a day 1 tablet 24h October, 30 days Active Benzonatate 200 MG Orally Three times a day 1 capsule as needed 8h Aug, Not-Taking doxepin 25 oral Once a day 1 capsule by Oral route 1 time per day QHS 24h Aug, Not-Taking Wellbutrin XL 150 MG Orally Once a day 1 tablet in the morning 24h Aug, 30 day(s) Not-Taking Simvastatin 10 mg Orally Once a day 1 tablet in the evening 24h Aug, 90 days Active Levemir FlexTouch 100 UNIT/ML Subcutaneous Once a day 10 units at bedtime 24h Aug, 90 days Not-Taking Tramadol HCl 50 mg Orally TID PRN 1 tablet as needed May,May 14 days Active MetFORMIN HCl ER 750 MG Orally twice a day 1 tablet twice a day 12h October 30 days Active Glucocard Expression Test 1 subcutaneously 2 times a day test 2 times per day 12h Aug, 10 days Active RESULTS No Results PROCEDURES No [...]
--- OUTSIDE RECORDS SUMMARY | 2018-01-21 19:11 | XMS REPORT ---
Author Author MICHAEL MOORE Organization [facility] Address [address] [place] [address] Care Team Providers Care Biomedical Photographer Name Role Phone MICHAEL MOORE Unavailable PROBLEMS Type Condition ICD9-CM Code [id number] Code Onset Dates Condition Status SNOMED Code Problem Hyperlipidemia E78.5 Active 85086556 Problem Hypertension I10 Active 75568889 Problem GERD (gastroesophageal reflux disease) K21.9 Active 703665321 Problem Arthritis M19.90 Active 7980786 Problem Diabetes type 2, uncontrolled E11.65 Active 680236840 Problem Routine health maintenance Z00.00 Active 464623909 Problem Cough R05 Active 43108983 Problem Encounter for counseling and surveillance for drug use disorder Z71.51 Active 174438345 Problem Bipolar 1 disorder F31.9 Active 924965924 ALLERGIES No Information SOCIAL HISTORY Never Assessed PLAN OF CARE VITAL SIGNS MEDICATIONS No Known Medications RESULTS No Results [...]
--- OUTSIDE RECORDS SUMMARY | 2018-01-21 19:11 | XMS REPORT ---
Author Author MICHAEL MOORE Organization [facility] Address [address] [place] [address] Care Team Providers Care Accident Report Clerk Name Role Phone MOORECHARLOTTE NicholeELE Unavailable PROBLEMS Type Condition ICD9-CM Code PLU02-DL Code Onset Dates Condition Status SNOMED Code Problem Hyperlipidemia E78.5 Active 09076283 Problem Hypertension I10 Active 56942405 Problem GERD (gastroesophageal reflux disease) K21.9 Active 812009216 Problem Arthritis M19.90 Active 2769495 Problem Diabetes type 2, uncontrolled E11.65 Active 244831516 Problem Routine health maintenance Z00.00 Active 140775603 Problem Cough R05 Active 03311550 Problem Encounter for counseling and surveillance for drug use disorder Z71.51 Active 230252375 Problem Bipolar 1 disorder F31.9 Active 710733314 ALLERGIES Substance Reaction Event Type Date Status Sudafed anxiety, hallucinations Drug Allergy October, Active Neurontin Unknown Drug Allergy October, Active Celebrex Unknown Drug Allergy October, Active Morphine Unknown Drug Allergy October, Active Codeine Unknown Drug Allergy October, Active SOCIAL HISTORY Never Assessed PLAN OF CARE Activity Details Follow Up 3 Months Reason:CHM/DM VITAL SIGNS Height 66 in 2016-11-13 Weight 154.0 lbs 2016-11-13 Temperature 97.0 degrees Fahrenheit 2016-11-13 Heart Rate 70 bpm 2016-11-13 Respiratory Rate 20 2016-11-13 BMI 24.85 kg/m2 2016-11-13 Blood pressure systolic 130 mmHg 2016-11-13 Blood pressure diastolic 78 mmHg 2016-11-13 MEDICATIONS Medication Instructions Dosage Frequency Start Date End Date Duration Status MetFORMIN HCl ER 750 MG Orally twice a day 1 tablet twice a day 12h October 90 days Active Nexium 24HR 20 mg Orally Once a day 1 capsule 24h Aug, 90 days Active GlipiZIDE 5 MG Orally Once a day 2 tablet 24h Aug, 90 days Active Glucocard Expression Test - In Vitro 2 times a day test blood sugar 12h 14 Aug, 2016 25 days Active Lantus SoloStar 100 UNIT/ML Subcutaneous at bedtime Inject 10 units October, 30 days Active Naproxen 500 mg Orally every 12 hrs 1 tablet as needed 12h October, Dec, 60 days Active Simvastatin 10 mg Orally Once a day 1 tablet in the evening 24h 07 Aug, 2016 90 days Active Lisinopril 5 mg Orally Once a day 2 tablet 24h October, 90 days Active RESULTS Name Result Date Reference Range A1C (IN HOUSE) 2016-11-13 A1C IN HOUSE 11.7 4.3 - 5.6 % Previous A1c 14.0 Lot [id number] Exp date 07/2018 PROCEDURES Procedure Date Ordered Result Body Site GLYCATED HEMOGLOBIN TEST November 13, 2016 IMMUNIZATIONS No Known Immunizations MEDICAL (GENERAL) [...]
[2018-01-21] MEDS ORDERED: KETOROLAC 30 MG/ML VIAL IVP ONE (19:45)
[2018-01-21 20:14] LABS: HEMOGLOBIN 12.8 G/DL (13.3-17.7); MEAN PLATELET VOLUME 10.6 FL (7.4-10.4); RED BLOOD COUNT 4.11 10^6/uL (4.35-5.85); RED CELL DISTRIBUTION WIDTH 12.5 % (10.0-14.5); WHITE BLOOD COUNT 5.6 10^3/uL (4.3-11.0)
[2018-01-21 20:34] LABS: ALANINE AMINOTRANSFERASE 15 U/L (0-55); ALKALINE PHOSPHATASE 70 U/L (40-136); BILIRUBIN,TOTAL 0.3 MG/DL (0.1-1.0); BUN/CREATININE RATIO 13; CARBON DIOXIDE 22 MMOL/L (21-32); CHLORIDE 103 MMOL/L (98-107); CREATININE SERUM 1.18 MG/DL (0.60-1.30); GFR ESTIMATED > 60; GLUCOSE 390 MG/DL (70-105); POTASSIUM 3.6 MMOL/L (3.6-5.0); SODIUM 137 MMOL/L (135-145); TOTAL PROTEIN 7.2 GM/DL (6.4-8.2)
--- NOTE | 2018-01-21 21:01 | ED General ---
General Chief Complaint: Bite-Animal/Human/Insect Stated Complaint: SPIDER BITE Nursing Triage Note: PT AMBULATED TO 3 W/O DIFFICULTIES. PT STATES HE WAS SEEN AT [facility] APPROXIMATELY 3 WEEKS AGO FOR A SPIDER BITE TO THE BACK OF HIS RIGHT KNEE. PT STATES HE HAS BEEN TAKING DOXYCYCLINE BUT FEELS THE WOUND IS NOT HEALING. PT C/O OOZING AND PAIN. PT'S BP WAS HIGH AT ASSESSMENT. PT STATES HE DID TAKE HIS BP MED TODAY. Nursing Sepsis Screen: No Definite Risk Source of Information: Patient Exam Limitations: No Limitations History of Present Illness Date Seen by Provider: Jan 21, 2018 Time Seen by Provider: 19:19 Initial Comments This 57-year-old gentleman presents to emergency room with complaints of pain behind the left knee in the location of a spider bite. He has an eschar healing lesion behind the right knee. He is concerned because it has drained some today. He is presently on doxycycline. He denies any fever. He has had some difficulty with tolerating the heat recently and he vomited a couple of times while out in the heat over the weekend. He has not vomited today. He is homeless and is a patient of [facility]. He utilizes support resources at [facility] as well. He is noted to be significantly hypertensive today and he has not sure if he took his blood pressure medications. He notes that his blood pressure a few days ago was in the 120s systolic. He is also a diabetic and reports that his blood sugars are always high. He reports that his wound to date has been well healing and decreasing in size with each visit he has had at [facility]. He has not been taking any medication for his pain as he cannot afford it. Walking is his primary mode of transportation which seems to aggravate his wound which is in the fold of the right posterior knee. Allergies and Home Medications Allergies Coded Allergies: cimetidine (Verified Allergy, Unknown, N/V, 04/14/15) cimetidine HCl (Verified Allergy, Unknown, N/V, 04/14/15) codeine (Verified Allergy, Unknown, 08/31/12) morphine (Verified Allergy, Unknown, 08/31/12) Uncoded Allergies: BLOOD PRESSURE MED X2 (Allergy, Unknown, 08/31/12) DIABETIC MED (Allergy, Unknown, 08/31/12) Home Medications Doxepin HCl 25 Mg Capsule, 25 MG PO DAILY, (Reported) LAST FILLED 01/10/15 #60 Fluconazole 100 Mg Tablet, 100 MG PO DAILY Prescribed by: MAHAMED ABAD on 04/21/151724 Glipizide 10 Mg Tablet, 20 MG PO BID, (Reported) LAST FILLED 01/10/15 #270 Liraglutide 0.6 Mg/0.1 Ml Pen.injctr, 1.8 MG SQ DAILY, (Reported) Lisinopril/Hydrochlorothiazide 1 Each Tablet, 1 EACH PO DAILY, (Reported) Metoprolol Tartrate 50 Mg Tablet, 50 MG PO BID Prescribed by: MAHAMED ABAD on 04/21/151724 Pantoprazole Sodium 40 Mg Tablet.dr, 40 MG PO DAILY Prescribed by: MAHAMED ABAD on 04/21/151724 Vilazodone Hydrochloride 40 Mg Tablet, 40 MG PO DAILY, (Reported) Patient Home Medication List Home Medication List Reviewed: Yes Review of Systems Constitutional: no symptoms reported EENTM: no symptoms reported Respiratory: no symptoms reported Cardiovascular: see HPI Gastrointestinal: see HPI Genitourinary: no symptoms reported Musculoskeletal: no symptoms reported Skin: see HPI Psychiatric/Neurological: No Symptoms Reported Hematologic/Lymphatic: No Symptoms Reported Past Hapybmu-Bwbxbh-Qmdhpm Hx Past Med/Social Hx: Reviewed and Corrections made Patient Social History Alcohol Use: Denies Use Recreational Drug Use: No Recent Foreign Travel: No Contact w/Someone Who Travel: No Recent Infectious Disease Expo: No Physical Abuse: No Sexual Abuse: No Immunizations Up To Date Tetanus Booster (TDap): Less than 5yrs Seasonal Allergies Seasonal Allergies: No Past Medical History Surgeries: Yes (LEFT INDEX FINGER traumatic amputation repair) Respiratory: No Cardiac: Yes Hypertension Neurological: Yes Neuropathy Reproductive Disorders: No Sexually Transmitted Disease: No HIV/AIDS: No Gastrointestinal: Yes Gastroesophageal Reflux Musculoskeletal: Yes (left foot bone spur) Endocrine: Yes Diabetes, Non-Insulin dep HEENT: No Cancer: No Psychosocial: Yes Depression Nursing Suicide Risk Score: 0 Integumentary: No Blood Disorders: No Adverse Reaction/Blood Tranf: No Family Medical History Reviewed Nursing Family Hx Congenital disease G8 SISTER Diabetes mellitus 19 FATHER 19 MOTHER G8 SISTER FH: depression G8 SISTER FH: mental retardation G8 BROTHER Kidney disease 19 MOTHER Diabetes Physical Exam Vital Signs Vital Signs - First Documented 01/21/18 19:09 Temp 98.1 Pulse 94 Resp 15 B/P (MAP) 195/121 (145) Pulse Ox 98 O2 Delivery Room Air Capillary Refill : Less Than 3 Seconds Height, Weight, BMI Height: 5'7.00" Weight: 117lbs. 6.0oz. 53.266909ep; BMI Method:Stated General Appearance: No Apparent Distress, WD/WN, Thin HEENT: PERRL/EOMI, Normal ENT Inspection Neck: Normal Inspection Respiratory: Lungs Clear, Normal Breath Sounds, No Respiratory Distress Cardiovascular: Regular Rate, Rhythm, No Edema, No Murmur Extremity: No Pedal Edema, Other (there is a well-healing lesion on the posterior aspect of the right knee. There appears to be healthy pain healing tissue on the margins of a central eschar. 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 Norm as Tested Skin: Normal Color, Warm/Dry, Other (see above) Progress/Results/Core Measures Suspected Sepsis Recent Fever Within 48 Hours: No Infection Criteria Present: None New/Unexplained Altered Menta: No Sepsis Screen: No Definite Risk SIRS Temperature:98.1 Pulse: 94 Respiratory Rate: 15 Laboratory Tests 01/21/18 18:48: White Blood Count 5.6 Blood Pressure 195 /121 Mean: 145 Laboratory Tests 01/21/18 18:48: Creatinine 1.18, Platelet Count 173, Total Bilirubin 0.3 Results/Orders Lab Results Laboratory Tests Test 01/21/18 18:48 Range/Units White Blood Count 5.6 4.3-11.0 10^3/uL Red Blood Count 4.11 L 4.35-5.85 10^6/uL Hemoglobin 12.8 L 13.3-17.7 G/DL Hematocrit 34 L 40-54 % Mean Corpuscular Volume 83 80-99 FL Mean Corpuscular Hemoglobin 31 25-34 PG Mean Corpuscular Hemoglobin Concent 37 H 32-36 G/DL Red Cell Distribution Width 12.5 10.0-14.5 % Platelet Count 173 130-400 10^3/uL Mean Platelet Volume 10.6 H 7.4-10.4 FL Sodium Level 137 135-145 MMOL/L Potassium Level 3.6 3.6-5.0 MMOL/L Chloride Level 103 98-107 MMOL/L Carbon Dioxide Level 22 21-32 MMOL/L Anion Gap 12 5-14 MMOL/L Blood Urea Nitrogen 15 7-18 MG/DL Creatinine 1.18 0.60-1.30 MG/DL Estimat Glomerular Filtration Rate > 60 BUN/Creatinine Ratio 13 Glucose Level 390 H 70-105 MG/DL Calcium Level 9.0 8.5-10.1 MG/DL Total Bilirubin 0.3 0.1-1.0 MG/DL Aspartate Amino Transf (AST/SGOT) 19 5-34 U/L Alanine Aminotransferase (ALT/SGPT) 15 0-55 U/L Alkaline Phosphatase 70 40-136 U/L Total Protein 7.2 6.4-8.2 GM/DL Albumin 4.0 3.2-4.5 GM/DL My Orders Orders - VIKKI VIDALES MD Cbc No Diff (01/21/18 19:32) Comprehensive Metabolic Panel (01/21/18 19:32) Saline Lock/Iv-Start (01/21/18 19:32) Ketorolac Injection (Toradol Injection) (01/21/18 19:45) Medications Given in ED Current Medications Medications Dose Ordered Sig/James Route Start Time Stop Time Status Last Admin Dose Admin Ketorolac Tromethamine 15 mg ONCE ONCE IVP 01/21/18 19:45 01/21/18 19:46 DC 01/21/18 19:54 15 MG Vital Signs/I&O 01/21/18 19:09 Temp 98.1 Pulse 94 Resp 15 B/P (MAP) 195/121 (145) Pulse Ox 98 O2 Delivery Room Air Capillary Refill : Less Than 3 Seconds Blood Pressure Mean: 145 Progress Note : Progress Note Patient was treated with Toradol which significantly improved his pain. However , blood pressure did not improve with pain control. Patient admits he may not of taken his blood pressure medication this morning. He was advised to take it when he gets home. He states he can stop in at [facility] or [facility] to have his blood pressure checked again in the morning. He still has several doses of doxycycline remaining in his bottle. He was advised to continue taking doxycycline until his supply is gone or otherwise instructed. Since Toradol helped his pain significantly, he was advised to take ibuprofen when he is able to access some. He is advised to seek assistance at the [facility] walk-in clinic if needed for his blood pressure or if he needs his wound reevaluated. See discharge instructions for further discussion. Departure Impression Primary Impression: Spider bite wound Qualified Codes: T63.301A - Toxic effect of unspecified spider venom, accidental (unintentional), initial encounter Additional Impressions: Episode of hypertension Right leg pain Disposition: HOME, SELF-CARE Condition: Improved Departure-Patient Inst. Referrals: [facility] (PCP/Family) Primary Care Physician Patient Instructions: High Blood Pressure (DC), Spider Bites Add. Discharge Instructions: You may take ibuprofen up to 400 mg every 6 hours as needed for pain. Add Tylenol (acetaminophen) disease up to 650 mg every 6 hours as needed for further pain control. Monitor your wound closely for increasing redness or drainage. Keep the wound dressing clean and dry. Return to the [facility] clinic if needed for reevaluation. Take your blood pressure medication when you return home. Stop in the clinic or [facility] tomorrow to have your blood pressure checked to ensure it returns to normal. Take your diabetes medication as prescribed. Drink plenty of clear liquids. Avoid carbohydrates and sugars in your diet to keep your blood sugar controlled. You need to have an appointment at [facility] in the near future for diabetes checkup. All discharge instructions reviewed with patient and/or family. Voiced understanding. Copy Copies To 1: PAZ CRANE JOSHUA T MD Jan 21, 2018 21:01
[2018-01-21 21:12] VITALS: BP 196/128
== END 2018-01-21 21:12 | disposition home or self-care (01) ==
LOC: EDUNIT# 19:02 → ER 19:04
DX: T63.301A Toxic effect of unspecified spider venom, accidental (unintentional), initial encounter (principal); I10 Essential (primary) hypertension; M79.604 Pain in right leg; E11.40 Type 2 diabetes mellitus with diabetic neuropathy, unspecified; K21.9 Gastro-esophageal reflux disease without esophagitis; F32.9 Major depressive disorder, single episode, unspecified; Z88.5 Allergy status to narcotic agent; Z88.6 Allergy status to analgesic agent; Z88.8 Allergy status to other drugs, medicaments and biological substances; Z79.84 Long term (current) use of oral hypoglycemic drugs
CPT/HCPCS: 36415; 80053; 85027; 96374

== ENCOUNTER 2019-01-01 12:15 | Emergency (ER) | payer SELFPAY ==
[~2019-01-01] VITALS: Ht 170.2 cm; Wt 54.4 kg
[~2019-01-01 12:15] MED LIST changes: +METF-399 PO; -METF10002 PO
[2019-01-01 12:31] LABS: BASOPHILS # (AUTO) 0.1 10^3/uL (0.0-0.1); BASOPHILS % (AUTO) 1 % (0-10); EOSINOPHILS # (AUTO) 0.1 10^3/uL (0.0-0.3); EOSINOPHILS % (AUTO) 1 % (0-10); HEMATOCRIT 41 % (40-54); HEMOGLOBIN 14.9 G/DL (13.3-17.7); LYMPHOCYTES # (AUTO) 3.3 X 10^3 (1.0-4.0); LYMPHOCYTES % (AUTO) 40 % (12-44); MEAN CORPUSCULAR HEMOGLOBIN 30 PG (25-34); MEAN CORPUSCULAR HGB CONC 36 G/DL (32-36); MEAN CORPUSCULAR VOLUME 83 FL (80-99); MEAN PLATELET VOLUME 10.9 FL (7.4-10.4); MONOCYTES # (AUTO) 0.5 X 10^3 (0.0-1.0); MONOCYTES % (AUTO) 7 % (0-12); NEUTROPHILS # (AUTO) 4.2 X 10^3 (1.8-7.8); NEUTROPHILS % (AUTO) 51 % (42-75); PLATELET COUNT 222 10^3/uL (130-400); RED CELL DISTRIBUTION WIDTH 12.4 % (10.0-14.5); WHITE BLOOD COUNT 8.2 10^3/uL (4.3-11.0)
[2019-01-01 12:38] LABS: BILIRUBIN,URINE NEGATIVE (NEGATIVE); CLARITY,URINE CLEAR; COLOR,URINE YELLOW; GLUCOSE, URINE (UA) 4+ (NEGATIVE); KETONES,URINE NEGATIVE (NEGATIVE); LEUKOCYTE ESTERASE ,URINE NEGATIVE (NEGATIVE); NITRITE,URINE NEGATIVE (NEGATIVE); PH,URINE 5 (5-9); PROTEIN,URINE 1+ (NEGATIVE); UROBILINOGEN,URINE NORMAL (NORMAL)
[2019-01-01] MEDS: NS IV 1000 ML 1,000 ML IV SCH ×2 (12:39→14:30)
[2019-01-01 12:46] LABS: BACTERIA,URINE NEGATIVE /HPF; RBC,URINE RARE /HPF; WBC,URINE RARE /HPF
[2019-01-01 12:51] LABS: ALBUMIN 4.2 GM/DL (3.2-4.5); BILIRUBIN,TOTAL 0.6 MG/DL (0.1-1.0); CREATININE SERUM 1.29 MG/DL (0.60-1.30); POTASSIUM 3.7 MMOL/L (3.6-5.0); TOTAL PROTEIN 7.3 GM/DL (6.4-8.2)
[2019-01-01 12:52] LABS: AMPHETAMINE SCREEN, URINE NEGATIVE (NEGATIVE); BARBITURATE SCREEN URINE NEGATIVE (NEGATIVE); BENZODIAZEPINES SCREEN URINE NEGATIVE (NEGATIVE); CANNABINOID SCREEN, URINE NEGATIVE (NEGATIVE); COCAINE SCREEN URINE NEGATIVE (NEGATIVE); METHAMPHETAMINE SCREEN URINE S NEGATIVE (NEGATIVE); OPIATE SCREEN URINE NEGATIVE (NEGATIVE); TRICYCLIC ANTIDEPRESSANTS SCRE NEGATIVE (NEGATIVE)
[2019-01-01 12:53] LABS: METHADONE STAT NEGATIVE (NEGATIVE); OXYCODONE STAT NEGATIVE (NEGATIVE); PROPOXYPHENE STAT NEGATIVE (NEGATIVE)
--- NOTE | 2019-01-01 13:39 | Diagnostic Imaging Report ---
PROCEDURE: CT head without contrast. TECHNIQUE: Multiple contiguous axial images were obtained through the brain without the use of intravenous contrast. Auto Exposure Controls were utilized during the CT exam to meet ALARA standards for radiation dose reduction. INDICATION: Altered mental status. Low blood sugar. COMPARISON: None available. FINDINGS: Multiple images are degraded by patient motion which diminishes detail, and interpretation was made in light of this technical confine. BRAIN: No parenchymal hemorrhage, midline shift or mass effect. Zamora-white matter differentiation is intact. No acute infarct. No white matter lesions. Ventricles, sulci and basilar cisterns are normal. EXTRA-AXIAL SPACES: No subdural or epidural collections. ORBITS AND PARANASAL SINUSES: Visualized orbits and globes are intact. Visualized paranasal sinuses and mastoid air cells are clear. CALVARIUM AND SOFT TISSUES: The calvarium is intact. No fractures or suspicious bony lesions. The extracranial soft tissues are unremarkable. IMPRESSION: Allowing for degradation caused by patient motion, no evidence of acute intracranial pathology. Dictated by: Dictated on workstation # [id number]
[2019-01-01] MEDS ORDERED: ONDANSETRON 4 MG/2 ML (SDV) Z0FRAN ONE (13:49)
[2019-01-01] MEDS ORDERED: ONDANSETRON 4 MG/2 ML (SDV) Z0FRAN IVP ONE (14:00)
[2019-01-01] MEDS ORDERED: NS IV 1000 ML 1,000 ML IV SCH (14:30)
--- NOTE | 2019-01-01 14:36 | ED General ---
General Chief Complaint: Glucose Problems Stated Complaint: HIGH BLOOD SUGAR Nursing Triage Note: Pt brought to rm 5 with assistance in wheelchair. Pt responsive to pain. Pt's friend reports pt's blood sugar was 501 this morning. Friend reports giving pt 20 units of friend's Humulin R at approximately 0900. Pt then collaped just MECHANICAL ENGINEERING TECHNOLOGIST and friend brought pt to ED. Pt's BS 224 upon arrival. Pt incontinent of bowel and was drenched in sweat. Nursing Sepsis Screen: No Definite Risk Source of Information: Patient Exam Limitations: No Limitations History of Present Illness Date Seen by Provider: Jan 01, 2019 Time Seen by Provider: 12:30 Initial Comments 58 year old male who was brought to the emergency room by his friend whom he lives for complains of passing out and has been lethargic and responsive to pain ever since. His friend reports that he had blood sugar of 501 and reports that he gave the patient his prescribed lantus 20units and then gave him his personal prescription of regular insulin 20 units around 0900 this am. He reports that the patient then went outside to working in the yard and play with his dog but when he came back in he passed out. On arrival to the ED he was found to be incontinent of bowel and bladder and very diaphoretic. He is responsive to painful stimuli and when he wakes reports that he need to have a BM. Timing/Duration: 1/2 Hour Associated Systoms: Syncope Allergies and Home Medications Allergies Coded Allergies: cimetidine (Verified Allergy, Unknown, N/V, 04/14/15) cimetidine HCl (Verified Allergy, Unknown, N/V, 04/14/15) codeine (Verified Allergy, Unknown, 08/31/12) morphine (Verified Allergy, Unknown, 08/31/12) Uncoded Allergies: BLOOD PRESSURE MED X2 (Allergy, Unknown, 08/31/12) DIABETIC MED (Allergy, Unknown, 08/31/12) Home Medications Doxepin HCl 25 Mg Capsule, 25 MG PO DAILY, (Reported) LAST FILLED 01/10/15 #60 Fluconazole 100 Mg Tablet, 100 MG PO DAILY Prescribed by: MAHAMED ABAD on 04/21/15 4225 Glipizide 10 Mg Tablet, 20 MG PO BID, (Reported) LAST FILLED 01/10/15 #270 Liraglutide 0.6 Mg/0.1 Ml Pen.injctr, 1.8 MG SQ DAILY, (Reported) Lisinopril/Hydrochlorothiazide 1 Each Tablet, 1 EACH PO DAILY, (Reported) Metoprolol Tartrate 50 Mg Tablet, 50 MG PO BID Prescribed by: MAHAMED ABAD on 04/21/151724 Pantoprazole Sodium 40 Mg Tablet.dr, 40 MG PO DAILY Prescribed by: MAHAMED ABAD on 04/21/151724 Vilazodone Hydrochloride 40 Mg Tablet, 40 MG PO DAILY, (Reported) Patient Home Medication List Home Medication List Reviewed: Yes Review of Systems Review of Systems Constitutional: see HPI; No chills, No fever Cardiovascular: see HPI, syncope Psychiatric/Neurological: See HPI, Weakness, Other (lethargic) Hematologic/Lymphatic: See HPI, Other ("high blood sugar" ) All Other Systems Reviewed Negative Unless Noted: Yes Past Ihslrkz-Yurzqs-Riuctz Hx Past Med/Social Hx: Reviewed Nursing Past Med/Soc Hx Patient Social History Alcohol Use: Denies Use Recreational Drug Use: No 2nd Hand Smoke Exposure: No Recent Foreign Travel: No Contact w/Someone Who Travel: No Recent Infectious Disease Expo: No Immunizations Up To Date Tetanus Booster (TDap): Less than 5yrs Seasonal Allergies Seasonal Allergies: No Past Medical History Surgeries: Yes (LEFT INDEX FINGER traumatic amputation repair) Respiratory: No Cardiac: Yes Hypertension Neurological: Yes Neuropathy Reproductive Disorders: No Sexually Transmitted Disease: No HIV/AIDS: No Gastrointestinal: Yes Gastroesophageal Reflux Musculoskeletal: Yes (left foot bone spur) Endocrine: Yes Diabetes, Non-Insulin dep HEENT: No Cancer: No Psychosocial: Yes Depression Integumentary: No Blood Disorders: No Adverse Reaction/Blood Tranf: No Family Medical History Reviewed Nursing Family Hx Congenital disease G8 SISTER Diabetes mellitus 19 FATHER 19 MOTHER G8 SISTER FH: depression G8 SISTER FH: mental retardation G8 BROTHER Kidney disease 19 MOTHER Diabetes Physical Exam Vital Signs Vital Signs - First Documented 01/01/19 12:46 Temp 94.8 Pulse 59 Resp 12 B/P (MAP) 105/78 (87) Pulse Ox 98 O2 Delivery Room Air Capillary Refill : Less Than 3 Seconds Height, Weight, BMI Height: 5'7.00" Weight: 120lbs. 6.0oz. 54.513071uy; BMI Method:Estimated General Appearance: Mild Distress, Thin Eyes: Bilateral Eye Normal Inspection, Bilateral Eye PERRL, Bilateral Eye EOMI HEENT: PERRL/EOMI, TMs Normal, Normal ENT Inspection, Pharynx Normal Neck: Full Range of Motion, Normal Inspection, Non Tender, Supple, Carotid Bruit Respiratory: Chest Non Tender, Lungs Clear, Normal Breath Sounds, No Accessory Muscle Use, No Respiratory Distress Cardiovascular: Regular Rate, Rhythm, No Edema, No Gallop, No JVD, No Murmur, Normal Peripheral Pulses Gastrointestinal: Normal Bowel Sounds, No Organomegaly, No Pulsatile Mass, Non Tender, Soft Extremity: Normal Capillary Refill Neurologic/Psychiatric: No Facial Droop; Other Progress/Results/Core Measures Suspected Sepsis Recent Fever Within 48 Hours: No Infection Criteria Present: None New/Unexplained Altered Menta: No Sepsis Screen: No Definite Risk SIRS Temperature:94.8 Pulse: 59 Respiratory Rate: 12 Blood Pressure 105 /78 Mean: 87 Results/Orders Lab Results My Orders Orders - MARISOL BARRERA Iv Push [employer] Car Loader Ed (01/01/19 ) Medications Given in ED Vital Signs/I&O Capillary Refill : Less Than 3 Seconds Blood Pressure Mean: 87 Point of Care Testing Finger Stick Blood Glucose: 125 Blood Glucose Action Taken: RN NOTIFIED Progress Note : Time: 14:30 Progress Note I have seen and evaluated the patient. He is much more responsive at this time. He reports that he is hungry and would like to eat. Food tray was ordered. He reports that he is feeling much better at this time and wishes to go home. He ambulated with out difficulty. Close follow up was instructed and return precautions were given. Departure Impression Primary Impression: Diabetes mellitus Additional Impression: Syncopal episodes Disposition: 01 HOME, SELF-CARE Condition: Stable/Unchanged Departure-Patient Inst. Decision time for Depature: 14:33 Referrals: [facility] (PCP/Family) Primary Care Physician Patient Instructions: Syncope (Fainting) (DC), Diabetes Type 2 (DC) Add. Discharge Instructions: Resume your home medications as previously prescribed. Follow-up with your primary care provider within 1 week for recheck. Drink plenty of fluids to stay hydrated. Return back to the emergency room for worsening symptoms or concerns as needed. All discharge instructions reviewed with patient and/or family. Voiced understanding. MARISOL BARRERA Jan 01, 2019 14:35
--- NOTE | 2019-01-01 14:41 | NUR ---
Food taken to pt at this time
[2019-01-01 15:22] VITALS: BP 153/97
== END 2019-01-01 15:22 | disposition home or self-care (01) ==
LOC: EDUNIT# 12:15 → ER 12:16
DX: E11.40 Type 2 diabetes mellitus with diabetic neuropathy, unspecified (principal); R55 Syncope and collapse; I10 Essential (primary) hypertension; K21.9 Gastro-esophageal reflux disease without esophagitis; F32.9 Major depressive disorder, single episode, unspecified; Z79.4 Long term (current) use of insulin; Z88.5 Allergy status to narcotic agent; Z88.8 Allergy status to other drugs, medicaments and biological substances
CPT/HCPCS: 36415; 51702; 70450; 80053; 80306; 80320; 81000; 82150; 82962; 83690; 84484; 85025; 93005; 96361; 96374

== ENCOUNTER → 2019-07-10 | Outpatient (CLI) | payer OTHER ==
[~2019-07-10] MED LIST changes: +BARIUM for suspension 96% w/w (Vanilla Silq Medium Density) PO ONE; +BARIUM for suspension 98% w/w (Vanilla Silq High Density) PO ONE; -LISI1TAB10 PO; +LISI1TAB26 PO; +OMEP-280 PO; -OMEP20CA12 PO; +SIMV40TA25 PO; -SIMV40TA4 PO
--- NOTE | 2019-07-10 12:27 | Diagnostic Imaging Report ---
INDICATION: Dysphagia. Patient states that it feels like food and liquid gets stuck in the midesophagus. TECHNIQUE: Patient ingested effervescent crystals as well as thin and thick barium and imaging of the esophagus was performed in multiple obliquities. Total of 1 minute 5 seconds of fluoroscopic time was utilized. FINDINGS: Preliminary radiograph is unremarkable. There appears to be a small diverticulum arising from the posterior wall of the upper esophagus, at the level of C6. The remainder of the esophagus has fairly smooth contour. Minimal irregularity involving the wall of the distal esophagus is seen but no discrete mass is identified. No definite stricture is identified. No gastroesophageal reflux was demonstrated. There is no hiatal hernia. IMPRESSION: 1. Upper esophageal diverticulum, approximately at the level of C6, as described. 2. Mild mucosal irregularity of the distal esophagus, perhaps on the basis of esophagitis. No discrete mass or luminal narrowing/stricture is identified. Correlation with endoscopy may be useful for further evaluation. Dictated by: Dictated on workstation # [id number]
== END ==
LOC: RAD 10:54
PROVIDERS: ATTEND Surgery
DX: K22.5 Diverticulum of esophagus, acquired (principal); R13.10 Dysphagia, unspecified
CPT/HCPCS: 74220

== ENCOUNTER 2019-08-10 09:15 | Outpatient (CLI) | payer OTHER ==
[~2019-08-10] VITALS: Ht 167 cm; Wt 63.6 kg
[~2019-08-10 09:15] MED LIST changes: -BARIUM for suspension 96% w/w (Vanilla Silq Medium Density) PO ONE; -BARIUM for suspension 98% w/w (Vanilla Silq High Density) PO ONE
[2019-08-10] MEDS ORDERED: METF750T45 PO (09:24)
[2019-08-10] MEDS ORDERED: LISI-552 PO (09:24)
[2019-08-10] MEDS ORDERED: AMLO10TA7 PO (09:24)
[2019-08-10] MEDS ORDERED: CYCL10TA9 PO (09:24)
[2019-08-10] MEDS ORDERED: EMPA10TA PO (09:24)
[2019-08-10] MEDS ORDERED: BUPR150T9 PO (09:24)
[2019-08-10] MEDS ORDERED: DOXE25CA46 PO (09:24)
[2019-08-10] MEDS ORDERED: MELO7.5T46 PO (09:24)
[2019-08-10] MEDS ORDERED: INSU100V5 SQ (09:24)
[2019-08-10] MEDS ORDERED: PRAV40TA2 PO (09:24)
[2019-08-10] MEDS ORDERED: CARV6.252 PO (09:24)
[2019-08-10] MEDS ORDERED: ESOM20CA PO (09:24)
[2019-08-10] MEDS ORDERED: GLIP10TA13 PO (09:24)
[2019-08-11] MEDS ORDERED: SUCR1TAB36 PO (14:19)
[2019-08-11] MEDS ORDERED: PANT40TA2 PO (14:19)
== END 2019-08-10 09:32 | disposition home or self-care (01) ==
LOC: PREOP 09:15
PROVIDERS: ATTEND Surgery
DX: Z01.818 Encounter for other preprocedural examination (principal)

== ENCOUNTER 2021-05-16 12:39 | Emergency (ER) | payer SELFPAY ==
[~2021-05-16] VITALS: Ht 170 cm; Wt 61.2 kg
[~2021-05-16 12:39] MED LIST changes: +AMLO-251 PO; +BUPR150T9 PO; +CARV6.252 PO; +CYCL10TA9 PO; +EMPA10TA PO; +ESOM20CA PO; +GLIP10TA13 PO; +INSU100V5 SQ; +LISI20TA26 PO; +MELO7.5T46 PO; +METF750T45 PO; -OMEP-280 PO; +OMEP20CA18 PO; +PANT40TA2 PO; -PANT40TA3 PO; +PANT40TA52 PO; +PRAV40TA2 PO; +SUCR1TAB36 PO; -SULF1TAB35 PO
[2021-05-16 13:23] LABS: BASOPHILS % (AUTO) 1 % (0-10); EOSINOPHILS # (AUTO) 0.1 10^3/uL (0.0-0.3); EOSINOPHILS % (AUTO) 2 % (0-10); HEMATOCRIT 38 % (40-54); HEMOGLOBIN 13.4 g/dL (13.3-17.7); LYMPHOCYTES # (AUTO) 1.5 10^3/uL (1.0-4.0); LYMPHOCYTES % (AUTO) 35 % (12-44); MEAN CORPUSCULAR HEMOGLOBIN 31 pg (25-34); MEAN CORPUSCULAR HGB CONC 36 g/dL (32-36); MEAN CORPUSCULAR VOLUME 87 fL (80-99); MEAN PLATELET VOLUME 10.3 fL (9.0-12.2); MONOCYTES # (AUTO) 0.5 10^3/uL (0.0-1.0); MONOCYTES % (AUTO) 11 % (0-12); NEUTROPHILS # (AUTO) 2.2 10^3/uL (1.8-7.8); NEUTROPHILS % (AUTO) 52 % (42-75); PLATELET COUNT 162 10^3/uL (130-400); WHITE BLOOD COUNT 4.3 10^3/uL (4.3-11.0)
[2021-05-16] MEDS ORDERED: lisINopril 20 MG (PRINIVIL) TABLET PO STA (13:26)
[2021-05-16] MEDS ORDERED: amLODIPine 10 MG (NORVASC) TAB PO STA (13:26)
[2021-05-16 13:36] LABS: PROTHROMBIN TIME PATIENT 13.2 SEC (12.2-14.7)
[2021-05-16 13:38] LABS: POTASSIUM 3.8 MMOL/L (3.6-5.0)
--- NOTE | 2021-05-16 13:40 | Diagnostic Imaging Report ---
EXAMINATION: Chest, one view. HISTORY: Chest pain. Hypertension. COMPARISON: 04/19/2015. FINDINGS: The lung volumes are normal. No focal consolidation is seen. No large pleural effusion or pneumothorax is seen. The cardiomediastinal silhouette is normal in size and contour. No acute osseous abnormality is seen. IMPRESSION: 1. No acute pleural-parenchymal process. Dictated by: Dictated on workstation # [id number]
[2021-05-16 13:41] LABS: TOTAL PROTEIN 7.1 GM/DL (6.4-8.2)
[2021-05-16 13:43] LABS: BILIRUBIN,TOTAL 0.6 MG/DL (0.1-1.0)
[2021-05-16 13:44] LABS: CREATININE SERUM 0.87 MG/DL (0.60-1.30)
[2021-05-16 13:47] LABS: MAGNESIUM 1.5 MG/DL (1.6-2.4)
[2021-05-16 14:08] LABS: TSH (THYROID ANALYZER) 2.45 UIU/ML (0.35-4.94)
[2021-05-16] MEDS ORDERED: NS IV 1000 ML 1,000 ML IV SCH (14:15)
--- NOTE | 2021-05-16 15:49 | ED Cardiac General ---
History of Present Illness General Chief Complaint: Cardiac/General Problems Stated Complaint: HTN 220/160 Nursing Triage Note: PT PRESENTS TO ED WITH COMPLAINTS OF HYPERTENSION STARTING THIS AM. PT STATES HE WAS SENT FROM HIS DR. OFFICE. PT STATES HE WAS SEEING HIS DR FOR ELBOW PAIN. PT ALSO REPORTS HE DID NOT TAKE HIS MORNING BP MEDICATION. Source: patient Exam Limitations: no limitations History of Present Illness Date Seen by Provider: May 16, 2021 Allergies and Home Medications Allergies Coded Allergies: codeine (Verified Allergy, Severe, ANAPHYLAXIS, 08/10/19) cimetidine (Verified Allergy, Mild, N/V, 08/10/19) cimetidine HCl (Verified Allergy, Mild, N/V, 08/10/19) morphine (Verified Allergy, Mild, GI UPSET, 08/10/19) Uncoded Allergies: BLOOD PRESSURE MED X2 (Allergy, Unknown, 08/31/12) DIABETIC MED (Allergy, Unknown, 08/31/12) Patient Home Medication List Amlodipine Besylate (Amlodipine Besylate) 10 Mg Tablet, 10 MG PO DAILY, (Reported) Entered as Reported by: PRINCESS PARDO on 08/10/19923 Bupropion HCl (Wellbutrin Sr) 150 Mg Tablet.er, 150 MG PO DAILY, (Reported) Entered as Reported by: PRINCESS PARDO on 08/10/19923 Carvedilol (Carvedilol) 6.25 Mg Tablet, 6.25 MG PO BID, (Reported) Entered as Reported by: PRINCESS PARDO on 08/10/19923 Cyclobenzaprine HCl (Cyclobenzaprine HCl) 10 Mg Tablet, 10 MG PO DAILY, (Reported) Entered as Reported by: PRINCESS PARDO on 08/10/19923 Doxepin HCl (Doxepin HCl) 25 Mg Capsule, 25 MG PO HS, (Reported) Entered as Reported by: PRINCESS PARDO on 08/10/19923 Empagliflozin (Jardiance) 10 Mg Tablet, 10 MG PO DAILY, (Reported) Entered as Reported by: PRINCESS PARDO on 08/10/19923 Glipizide (Glipizide) 10 Mg Tablet, 10 MG PO BID, (Reported) Entered as Reported by: PRINCESS PARDO on 08/10/19923 Insulin Determir (Levemir) 1,000 Units/10 Ml Soln, 25 UNITS SQ HS, (Reported) Entered as Reported by: PRINCESS PARDO on 08/10/19923 Lisinopril (Lisinopril) 20 Mg Tablet, 20 MG PO DAILY, (Reported) Entered as Reported by: PRINCESS PARDO on 08/10/19923 Meloxicam (Meloxicam) 7.5 Mg Tablet, 3.75 MG PO BID, (Reported) Entered as Reported by: PRINCESS PARDO on 08/10/19923 Metformin HCl (Metformin HCl ER) 750 Mg Tab.er.24h, 750 MG PO BID, (Reported) Entered as Reported by: PRINCESS PARDO on 08/10/19923 Pantoprazole Sodium (Protonix) 40 Mg Tablet.dr, 40 MG PO DAILY Prescribed by: VIRGINIA CLAY on 08/11/191418 Pravastatin Sodium (Pravastatin Sodium) 40 Mg Tablet, 40 MG PO DAILY, (Reported) Entered as Reported by: PRINCESS PARDO on 08/10/19923 Sucralfate (Carafate) 1 Gm Tablet, 1 GM PO QID Prescribed by: VIRGINIA LCAY on 08/11/191418 Past Nqbwsal-Cfpioz-Icnqvg Hx Patient Social History Tobacco Use?: No Substance use?: No Alcohol Use?: No Pt feels they are or have been: No Immunizations Up To Date Tetanus Booster (TDap): Less than 5yrs First/Initial COVID19 Vaccinat: September COVID19 Vaccination Ziggy: SEPTEMBER COVID19 Vaccine 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 Seasonal Allergies Seasonal Allergies: No Past Medical History Surgery/Hospitalization HX: PMH: DM, HIGH CHOLESTEROL, HTN Surgeries: Yes (LEFT INDEX FINGER traumatic amputation repair) Tonsillectomy Respiratory: No Cardiac: Yes High Cholesterol, Hypertension Neurological: Yes Neuropathy Reproductive Disorders: No Sexually Transmitted Disease: No HIV/AIDS: No Genitourinary: No Gastrointestinal: Yes Gastroesophageal Reflux Musculoskeletal: Yes (left foot bone spur) Endocrine: Yes Diabetes, Non-Insulin dep HEENT: No Loss of Vision: Denies Hearing Impairment: Denies Cancer: No Psychosocial: Yes Depression Integumentary: No Blood Disorders: No Adverse Reaction/Blood Tranf: No (N/A) Family Medical History Congenital disease G8 SISTER Diabetes mellitus 19 FATHER 19 MOTHER G8 SISTER FH: depression G8 SISTER FH: mental retardation G8 BROTHER Kidney disease 19 MOTHER Diabetes Physical Exam Vital Signs Vital Signs - First Documented 05/16/21 12:58 Temp 36.1 Pulse 86 Resp 20 B/P (MAP) 195/119 (144) Pulse Ox 97 Capillary Refill : Less Than 3 Seconds Height, Weight, BMI Height: 5'7.00" Weight: 120lbs. 6.0oz. [id number]; 21.00 BMI Method:Estimated Progress/Results/Core Measures Results/Orders Lab Results Laboratory Tests Test 05/16/21 13:15 05/16/21 15:11 Range/Units White Blood Count 4.3 4.3-11.0 10^3/uL Red Blood Count 4.36 4.30-5.52 10^6/uL Hemoglobin 13.4 13.3-17.7 g/dL Hematocrit 38 L 40-54 % Mean Corpuscular Volume 87 80-99 fL Mean Corpuscular Hemoglobin 31 25-34 pg Mean Corpuscular Hemoglobin Concent 36 32-36 g/dL Red Cell Distribution Width 11.8 10.0-14.5 % Platelet Count 162 130-400 10^3/uL Mean Platelet Volume 10.3 9.0-12.2 fL Immature Granulocyte % (Auto) 0 % Neutrophils (%) (Auto) 52 42-75 % Lymphocytes (%) (Auto) 35 12-44 % Monocytes (%) (Auto) 11 0-12 % Eosinophils (%) (Auto) 2 0-10 % Basophils (%) (Auto) 1 0-10 % Neutrophils # (Auto) 2.2 1.8-7.8 10^3/uL Lymphocytes # (Auto) 1.5 1.0-4.0 10^3/uL Monocytes # (Auto) 0.5 0.0-1.0 10^3/uL Eosinophils # (Auto) 0.1 0.0-0.3 10^3/uL Basophils # (Auto) 0.0 0.0-0.1 10^3/uL Immature Granulocyte # (Auto) 0.0 0.0-0.1 10^3/uL Prothrombin Time 13.2 12.2-14.7 SEC INR Comment 1.0 0.8-1.4 Activated Partial Thromboplast Time 27 24-35 SEC Sodium Level 135 135-145 MMOL/L Potassium Level 3.8 3.6-5.0 MMOL/L Chloride Level 101 98-107 MMOL/L Carbon Dioxide Level 24 21-32 MMOL/L Anion Gap 10 5-14 MMOL/L Blood Urea Nitrogen 9 7-18 MG/DL Creatinine 0.87 0.60-1.30 MG/DL Estimat Glomerular Filtration Rate 90 BUN/Creatinine Ratio 10 Glucose Level 411 *H 70-105 MG/DL Calcium Level 9.0 8.5-10.1 MG/DL Corrected Calcium 9.0 8.5-10.1 MG/DL Magnesium Level 1.5 L 1.6-2.4 MG/DL Total Bilirubin 0.6 0.1-1.0 MG/DL Aspartate Amino Transf (AST/SGOT) 26 5-34 U/L Alanine Aminotransferase (ALT/SGPT) 24 0-55 U/L Alkaline Phosphatase 84 40-136 U/L Myoglobin 49.9 10.0-92.0 NG/ML Troponin I < 0.028 <0.028 NG/ML B-Type Natriuretic Peptide 94.8 <100.0 PG/ML Total Protein 7.1 6.4-8.2 GM/DL Albumin 4.0 3.2-4.5 GM/DL TSH Fulda Testing 2.45 0.35-4.94 UIU/ML Glucometer 250 H 70-110 MG/DL My Orders Orders - VIKKI VIDALES MD Cbc With Automated Diff (05/16/21 13:07) Magnesium (05/16/21 13:07) Chest 1 View, Ap/Pa Only (05/16/21 13:07) Ekg Tracing (05/16/21 13:07) Comprehensive Metabolic Panel (05/16/21 13:07) Myoglobin Serum (05/16/21 13:07) Protime With Inr (05/16/21 13:07) Partial Thromboplastin Time (05/16/21 13:07) O2 (05/16/21 13:07) Monitor-Rhythm Ecg Trace Only (05/16/21 13:07) Ed Iv/Invasive Line Start (05/16/21 13:07) Troponin I (05/16/21 13:07) BNP (05/16/21 13:17) Thyroid Analyzer (05/16/21 13:17) Amlodipine Tablet (Norvasc Tablet) (05/16/21 13:26) Lisinopril Tablet (Zestril Tablet) (05/16/21 13:26) Carvedilol Tablet (Coreg Tablet) (05/16/21 13:26) Ns Iv 1000 Ml (Sodium Chloride 0.9%) (05/16/21 14:15) Accucheck Stat ONCE (05/16/21 15:02) Magnesium Oxide Tablet (Mag Ox Tablet) (05/16/21 16:00) Vital Signs/I&O 05/16/21 05/16/21 12:58 16:11 Temp 36.1 Pulse 86 80 Resp 20 18 B/P (MAP) 195/119 (144) 169/103 Pulse Ox 97 98 Blood Pressure Mean: 144 FSBG Bedside Testing Finger Stick Blood Glucose: 250 Blood Glucose Action Taken: reported to RN Initial ECG Impression Date: May 16, 2021 Initial ECG Impression Time: 13:12 Initial ECG Rate: 85 Initial ECG Rhythm: Normal Sinus Comment Sinus rhythm with no ischemic ST elevation or depression. Subtle ST changes are similar to prior. LVH noted. No abnormal intervals. Diagnostic Imaging Diagonstic Imaging: Xray Plain Films/CT/US/NM/MRI: chest Comments NAME: [facility] REC#: [id number] PT STATUS: REG ER : [id number] PHYSICIAN: VIKKI VIDALES MD ADMIT DATE: 05/16/21/ER Signed Date of Exam:05/16/21 CHEST 1 VIEW, AP/PA ONLY EXAMINATION: Chest, one view. HISTORY: Chest pain. Hypertension. COMPARISON: 04/19/2015. FINDINGS: The lung volumes are normal. No focal consolidation is seen. No large pleural effusion or pneumothorax is seen. The cardiomediastinal silhouette is normal in size and contour. No acute osseous abnormality is seen. IMPRESSION: 1. No acute pleural-parenchymal process. Dictated by: Dictated on workstation # [id number] Dict: 05/16/21 1337 Trans: 05/16/21 1340 [id number] Interpreted by: IVIS RUBIN DO Electronically signed by: IVIS RUBIN DO 05/16/21 1340 Departure Impression Primary Impression: Uncontrolled hypertension Additional Impressions: Hyperglycemia Noncompliance with medication regimen Disposition: HOME, SELF-CARE Condition: Improved Departure-Patient Inst. Decision time for Depature: 15:52 Referrals: [facility] (PCP) Primary Care Physician AMBER MARKHAM APRN (Family) Primary Care Physician Patient Instructions: High Blood Pressure in Adults, Type 2 Diabetes Add. Discharge Instructions: Resume your usual medications and strictly adhere to the prescribed regimen. Follow-up in the clinic for a blood pressure check within the next 48 hours. Also schedule a follow-up appointment to discuss your blood pressure, blood bobby gars, and medications. Check your blood sugars at least twice daily, preferably fasting in the morning and 2 hours after a meal. Present these blood sugars to your primary care provider in follow-up. Drink plenty of water. Avoid carbohydrate and sugary foods. Also avoid excessive salt and stimulants that could affect your blood pressure such as decongestant medications, diet pills, energy drinks, ADHD medications, workout supplements, excessive caffeine, etc. Call with questions or concerns. Return to the ER if you have worsening symptoms. All discharge instructions reviewed with patient and/or family. Voiced understanding. Work/School Note: Work Release Form Date Seen in the Emergency Department: May 16, 2021 Return to Work: May 17, 2021 Restrictions: No Restrictions VIKKI VIDALES MD May 16, 2021 15:49
[2021-05-16] MEDS ORDERED: MAGNESIUM OXIDE (MAG-OX)400 MG TAB PO ONE (16:00)
[2021-05-16 16:11] VITALS: BP 169/103
== END 2021-05-16 16:10 | disposition home or self-care (01) ==
LOC: EDUNIT# 12:39 → ER 12:41
DX: I10 Essential (primary) hypertension (principal); E78.00 Pure hypercholesterolemia, unspecified; E11.65 Type 2 diabetes mellitus with hyperglycemia; K21.9 Gastro-esophageal reflux disease without esophagitis; F32.9 Major depressive disorder, single episode, unspecified; Z91.14 Patient's other noncompliance with medication regimen; Z79.84 Long term (current) use of oral hypoglycemic drugs; Z79.899 Other long term (current) drug therapy
CPT/HCPCS: 36415; 71045; 80053; 82947; 83735; 83874; 83880; 84443; 84484; 85025; 85610; 85730; 93005; 93041

== ENCOUNTER 2022-08-01 11:13 | Emergency (ER) | payer MEDICAID ==
[~2022-08-01] VITALS: Ht 170.2 cm; Wt 59.0 kg
[~2022-08-01 11:13] MED LIST changes: +CYCL10TA25 PO; -CYCL10TA9 PO; -LISI1TAB26 PO; +LISI1TAB48 PO
--- NOTE | 2022-08-01 11:45 | ED General ---
General Chief Complaint: Dizziness/Syncope Stated Complaint: NEAR SYNCOPE Nursing Triage Note: PT TO ED BY EMS FROM [facility] WITH C/O NEAR SYNCOPAL EPISODE. PT REPORTS HE WAS SEEN AT [facility] FOR A ROUTINE VISIT, GOT DIZZY AND NAUSEOUS WHILE STANDING WAITING TO BE DISCHARGED AND VOMITED. REPORTS NO LOC OR FALL. STATES HE DID NOT EAT ANYTHING THIS MORNING AND TOOK HIS MEDS ON AN EMPTY STOMACH INCASE THEY DID BLOOD WORK AT HIS APPOINTMENT. PT HAS NO COMPLAINTS AT THIS TIME AND STATES "I FEEL FINE." Source of Information: Patient Exam Limitations: No Limitations History of Present Illness Date Seen by Provider: Aug 01, 2022 Time Seen by Provider: 11:30 Initial Comments Patient is a 61-year-old male who presents to the emergency room with a chief complaint of feeling lightheaded and dizzy while he was at his [facility] this morning. Patient states that he woke up this morning and had some diarrhea, he also had an episode of nausea and vomiting. He states he took his morning meds without having any breakfast. He was scheduled to have labs drawn this morning as well and therefore did not eat. He denies recent fevers, chills, headache. No sore throat, runny nose or congestion. No cough or shortness of breath. Currently not nauseous feels back to baseline. No rashes joint pain or swelling. He states that he was standing at the counter getting ready to be seen he became very dizzy but did not feel like he was going to pass out. He states they checked his blood sugar at the clinic and it was in the 150s. He states they also did an EKG and were concerned about that. No complaints currently. Timing/Duration: 1 Hour Severity: Mild Associated Systoms: Denies Symptoms Allergies and Home Medications Allergies Coded Allergies: codeine (Verified Allergy, Severe, ANAPHYLAXIS, 08/10/19) cimetidine (Verified Allergy, Mild, N/V, 08/10/19) cimetidine HCl (Verified Allergy, Mild, N/V, 08/10/19) morphine (Verified Allergy, Mild, GI UPSET, 08/10/19) Uncoded Allergies: BLOOD PRESSURE MED X2 (Allergy, Unknown, 08/31/12) DIABETIC MED (Allergy, Unknown, 08/31/12) Patient Home Medication List Home Medication List Reviewed: Yes Amlodipine Besylate (Amlodipine Besylate) 10 Mg Tablet, 10 MG PO DAILY, (Reported) Entered as Reported by: PRINCESS PARDO on 08/10/19923 Bupropion HCl (Wellbutrin Sr) 150 Mg Tablet.er, 150 MG PO DAILY, (Reported) Entered as Reported by: PRINCESS PARDO on 08/10/19923 Carvedilol (Carvedilol) 6.25 Mg Tablet, 6.25 MG PO BID, (Reported) Entered as Reported by: PRINCESS PARDO on 08/10/19923 Cyclobenzaprine HCl (Cyclobenzaprine HCl) 10 Mg Tablet, 10 MG PO DAILY, (Reported) Entered as Reported by: PRINCESS PARDO on 08/10/19923 Doxepin HCl (Doxepin HCl) 25 Mg Capsule, 25 MG PO HS, (Reported) Entered as Reported by: PRINCESS PARDO on 08/10/19923 Empagliflozin (Jardiance) 10 Mg Tablet, 10 MG PO DAILY, (Reported) Entered as Reported by: PRINCESS PARDO on 08/10/19923 Glipizide (Glipizide) 10 Mg Tablet, 10 MG PO BID, (Reported) Entered as Reported by: PRINCESS PARDO on 08/10/19923 Insulin Determir (Levemir) 1,000 Units/10 Ml Soln, 25 UNITS SQ HS, (Reported) Entered as Reported by: PRINCESS PARDO on 08/10/19923 Lisinopril (Lisinopril) 20 Mg Tablet, 20 MG PO DAILY, (Reported) Entered as Reported by: PRINCESS PARDO on 08/10/19923 Meloxicam (Meloxicam) 7.5 Mg Tablet, 3.75 MG PO BID, (Reported) Entered as Reported by: PRINCESS PARDO on 08/10/19923 Metformin HCl (Metformin HCl ER) 750 Mg Tab.er.24h, 750 MG PO BID, (Reported) Entered as Reported by: PRINCESS PARDO on 08/10/19923 Pantoprazole Sodium (Protonix) 40 Mg Tablet.dr, 40 MG PO DAILY Prescribed by: VIRGINIA CLAY on 08/11/19 1419 Pravastatin Sodium (Pravastatin Sodium) 40 Mg Tablet, 40 MG PO DAILY, (Reported) Entered as Reported by: PRINCESS PARDO on 08/10/19 0924 Sucralfate (Carafate) 1 Gm Tablet, 1 GM PO QID Prescribed by: VIRGINIA CLAY on 08/11/19 141 Review of Systems Review of Systems Constitutional: see HPI EENTM: no symptoms reported Respiratory: no symptoms reported Cardiovascular: no symptoms reported Gastrointestinal: nausea Genitourinary: no symptoms reported Musculoskeletal: no symptoms reported Skin: no symptoms reported Psychiatric/Neurological: Other (dizziness) Past Hzhtmei-Qajmxd-Hoqrwo Hx Patient Social History Tobacco Use?: No Use of E-Cig and/or Vaping dev: No Substance use?: No Alcohol Use?: No Pt feels they are or have been: No Immunizations Up To Date Tetanus Booster (TDap): Less than 5yrs Influenza Vaccine Up-to-Date: Yes; Up-to-Date First/Initial COVID19 Vaccinat: X2 Second COVID19 Vaccination Ziggy: X2 Third COVID19 Vaccination Date: X2 Seasonal Allergies Seasonal Allergies: No Past Medical History Surgery/Hospitalization HX: PMH: DM, HIGH CHOLESTEROL, HTN Surgeries: Yes (LEFT INDEX FINGER traumatic amputation repair) Tonsillectomy Respiratory: No Cardiac: Yes High Cholesterol, Hypertension Neurological: Yes Neuropathy Reproductive Disorders: No Sexually Transmitted Disease: No HIV/AIDS: No Genitourinary: No Gastrointestinal: Yes Gastroesophageal Reflux Musculoskeletal: Yes (left foot bone spur) Endocrine: Yes Diabetes, Insulin dep HEENT: No Loss of Vision: Denies Hearing Impairment: Denies Cancer: No Psychosocial: Yes Depression Integumentary: No Blood Disorders: No Adverse Reaction/Blood Tranf: No (N/A) Family Medical History Congenital disease G8 SISTER Diabetes mellitus 19 FATHER 19 MOTHER G8 SISTER FH: depression G8 SISTER FH: mental retardation G8 BROTHER Kidney disease 19 MOTHER Diabetes Physical Exam Vital Signs Vital Signs - First Documented 08/01/22 11:16 Temp 37.0 Pulse 105 Resp 19 B/P (MAP) 164/99 (120) Pulse Ox 98 O2 Delivery Room Air Capillary Refill : Less Than 3 Seconds Height, Weight, BMI Height: 5'7.00" Weight: 120lbs. 6.0oz. 54.418866yi; 20.00 BMI Method:Estimated General Appearance: No Apparent Distress, WD/WN, Thin Eyes: Bilateral Eye Normal Inspection, Bilateral Eye PERRL, Bilateral Eye EOMI HEENT: PERRL/EOMI Neck: Normal Inspection Respiratory: Lungs Clear, Normal Breath Sounds, No Accessory Muscle Use, No Respiratory Distress Cardiovascular: Regular Rate, Rhythm Extremity: Normal Capillary Refill, Normal Inspection, Normal Range of Motion Neurologic/Psychiatric: Alert, Oriented x3, No Motor/Sensory Deficits, Normal Mood/Affect Skin: Normal Color, Warm/Dry Progress/Results/Core Measures Suspected Sepsis SIRS Temperature: Pulse: 105 Respiratory Rate: 19 Blood Pressure 164 /99 Mean: 120 Laboratory Tests 08/01/22 12:12: Creatinine 1.20 Results/Orders Lab Results Laboratory Tests Test 08/01/22 12:12 Range/Units Sodium Level 141 135-145 MMOL/L Potassium Level 3.7 3.6-5.0 MMOL/L Chloride Level 104 98-107 MMOL/L Carbon Dioxide Level 27 21-32 MMOL/L Anion Gap 10 5-14 MMOL/L Blood Urea Nitrogen 25 H 7-18 MG/DL Creatinine 1.20 0.60-1.30 MG/DL Estimat Glomerular Filtration Rate 70 BUN/Creatinine Ratio 21 Glucose Level 155 H 70-105 MG/DL Calcium Level 9.4 8.5-10.1 MG/DL My Orders Orders - YOBANY ALATORRE MD Ed Iv/Invasive Line Start (08/01/22 11:42) Basic Metabolic Panel (08/01/22 11:42) Ekg Tracing (08/01/22 11:42) Ns Iv 1000 Ml (Sodium Chloride 0.9%) (08/01/22 12:15) Vital Signs/I&O 08/01/22 11:16 Temp 37.0 Pulse 105 Resp 19 B/P (MAP) 164/99 (120) Pulse Ox 98 O2 Delivery Room Air Capillary Refill : Less Than 3 Seconds Blood Pressure Mean: 120 Progress Note : Time: 12:41 Progress Note Patient seen and examined by me, 61-year-old who presents to the emergency room with a chief complaint of dizziness at a clinic visit. Evaluation today includes a physical exam, EKG, basic metabolic panel. Differential diagnosis volume depletion, hypoxia, vertigo, stroke/cerebellar ischemia, arrhythmia. After evaluation with physical exam, no acute neurologic deficits, no chest pain no shortness of breath/hypoxia, EKG reviewed and sinus tach, basic metabolic panel normal suspect his dizziness is related to not eating or having anything to drink prior to his appointment. His blood sugars in the 150s according to his chemistry. He feels completely back to baseline. No clinical or objective findings to warrant further evaluation from an ER perspective. Low clinical concern for cerebellar causes of dizziness. Consideration for CT however history physical do not support the need. Patient reassured, advised to continue his current medications. Return precautions provided. He verbalized understanding. All questions are sought and answered. Patient is improved at discharge ECG Initial ECG Impression Date: Aug 01, 2022 Initial ECG Impression Time: 12:06 Initial ECG Rate: 102 Initial ECG Rhythm: S.Tach Initial ECG Intervals IA interval 184 QRS 107 QTc 462 Comment No ectopy, sinus tach, slightly prolonged QRS. No ST segment elevation or depression. Departure Impression Primary Impression: Dizziness Disposition: 01 HOME, SELF-CARE Condition: Improved Departure-Patient Inst. Decision time for Depature: 12:44 Referrals: [facility] (PCP) Primary Care Physician AMBER MARKHAM APRN (Family) Primary Care Physician Patient Instructions: Dizziness, Adult ED Add. Discharge Instructions: Drink plenty of fluids to stay well-hydrated. Continue your current daily medications. Please return to the emergency department for any new, concerning or emergent complaints. Please keep your scheduled follow-up with your primary care provider. Copy Copies To 1: PAZ CRANE KATHRYN M MD Aug 01, 2022 11:45
[2022-08-01] MEDS ORDERED: NS IV 1000 ML 1,000 ML IV STA (12:15)
[2022-08-01 12:37] LABS: CALCIUM 9.4 MG/DL (8.5-10.1); CREATININE SERUM 1.2 MG/DL (0.60-1.30); POTASSIUM 3.7 MMOL/L (3.6-5.0)
[2022-08-01 13:23] VITALS: BP 147/91
== END 2022-08-01 13:25 | disposition home or self-care (01) ==
LOC: EDUNIT# 11:13 → ER 11:14
DX: R42 Dizziness and giddiness (principal); E11.9 Type 2 diabetes mellitus without complications; Z79.4 Long term (current) use of insulin
CPT/HCPCS: 36415; 80048; 93005

== ENCOUNTER → 2022-11-28 | Outpatient (CLI) | payer MEDICAID ==
[~2022-11-28] MED LIST changes: +BARIUM for suspension 96% w/w (Vanilla Silq Medium Density) PO ONE; +BARIUM for suspension 98% w/w (Vanilla Silq High Density) PO ONE
--- NOTE | 2022-11-28 12:57 | Diagnostic Imaging Report ---
INDICATION: Water gets stuck in the esophagus at the level of the mid chest. Patient ingested effervescent crystals as well as thin and thick barium and imaging of the esophagus was performed in multiple obliquities. Limited radiograph of the chest is unremarkable. Esophagus has a smooth contour. No mass or stricture is identified. No gastroesophageal reflux or hiatal hernia was demonstrated. IMPRESSION: Unremarkable esophagram. Dictated by: Dictated on workstation # [id number]
== END ==
LOC: RAD 10:28
PROVIDERS: ATTEND Surgery
DX: R13.10 Dysphagia, unspecified (principal)
CPT/HCPCS: 74220

== ENCOUNTER 2022-12-12 05:36 | Outpatient (CLI) | payer MEDICAID ==
[~2022-12-12] VITALS: Ht 170.2 cm; Wt 62.5 kg
[~2022-12-12 05:36] MED LIST changes: -BARIUM for suspension 96% w/w (Vanilla Silq Medium Density) PO ONE; -BARIUM for suspension 98% w/w (Vanilla Silq High Density) PO ONE
[2022-12-12] MEDS ORDERED: OMEP40CA6 PO (09:50)
[2022-12-12] MEDS ORDERED: CETI10TA17 PO (09:50)
[2022-12-12] MEDS ORDERED: INSU100I88 SQ (09:50)
[2022-12-12] MEDS ORDERED: SEMA1PEN3 SQ (09:50)
[2022-12-12] MEDS ORDERED: EMPA1TAB7 PO (09:50)
== END 2022-12-12 10:05 | disposition home or self-care (01) ==
LOC: PREOP 05:36
PROVIDERS: ATTEND Surgery
DX: Z01.818 Encounter for other preprocedural examination (principal)

== ENCOUNTER 2022-12-20 11:14 | Day surgery (SDC) | payer MEDICAID ==
[~2022-12-20] VITALS: Ht 170 cm; Wt 62.5 kg
[~2022-12-20 11:14] MED LIST changes: +CETI10TA17 PO; +EMPA1TAB7 PO; +INSU100I88 SQ; +OMEP40CA6 PO; +SEMA1PEN3 SQ
[2022-12-20] MEDS ORDERED: LACTATED RINGERS 1,000 ML IV STA (11:23)
[2022-12-20 11:30] VITALS: BP 176/113
[2022-12-20] MEDS ORDERED: HURRICAINE EXT TUBE (BENZOCAINE) XX PRN (11:30)
[2022-12-20] MEDS ORDERED: proPOfol 200 MG/20 ML (DIPRIVAN) VIAL IV ONE (13:19)
[2022-12-20] MEDS ORDERED: MIDAZOLAM 2 MG/2 ML (VERSED) VIAL ONE (13:19)
[2022-12-20 13:30] VITALS: BP 162/99
[2022-12-20 13:35] VITALS: BP 170/109
[2022-12-20 13:37] VITALS: BP 167/105
[2022-12-20 13:40] VITALS: BP 167/105
[2022-12-20] MEDS ORDERED: PANT40TA2 PO (14:00)
--- NOTE | 2022-12-20 14:01 | Discharge Inst-Simple/Standard ---
Discharge Inst-Standard Discharge Medications New, Converted or Re-Newed RX: Transmitted to Pharmacy Patient Instructions/Follow Up Plan of Care/Instructions/FU: 2 weeks Eder Activity as Tolerated: Yes Discharge Diet: Regular Diet VIRGINIA CLAY DO Dec 20, 2022 14:01
[2022-12-20 14:16] VITALS: BP 167/105
--- NOTE | 2022-12-20 14:53 | Anesthesia-General Post-Op ---
MAC Patient Condition Mental Status/LOC: Same as Preop Cardiovascular: Satisfactory Nausea/Vomiting: Absent Respiratory: Satisfactory Pain: Controlled Complications: Absent Post Op Complications Complications None Follow Up Care/Instructions Patient Instructions None needed. Anesthesiology Discharge Order Discharge Order Patient was doing well after the procedure with no complaints, stable vital signs, no apparent adverse anesthesia problems. No complications reported per nursing. MARIO DYER DO Dec 20, 2022 14:53
--- NOTE | 2022-12-21 04:31 | OPERATIVE REPORT ---
DATE OF SERVICE: 12/20/2022 PREOPERATIVE DIAGNOSIS: Dysphagia. POSTOPERATIVE DIAGNOSES: Reflux esophagitis, hiatal hernia. SURGEON: Virginia Gaines DO ANESTHESIA: Per CHALK MACHINE OPERATOR. ESTIMATED BLOOD LOSS: None. COMPLICATIONS: None. INDICATIONS: The patient is a 61-year-old male who was having some dysphagia symptoms. He understands risks and benefits of procedure and wished to proceed. Consent was signed in chart. DESCRIPTION OF PROCEDURE: The patient was taken to endoscopy suite, placed in left lateral recumbent position. Timeout was performed. Scope was inserted in the mouth, esophagus, stomach into the duodenum without difficulty. No polyps, masses or ulcerations within the duodenum. Scope was slowly retracted back until stomach where it was further insufflated. No polyps, masses or ulcerations. Biopsy of the antrum was obtained. Scope was retroflexed noting a small hiatal hernia, no other pathology. Scope was returned to its normal position, slowly withdrawn until distal esophagus. Some changes of slight reflux esophagitis present. Biopsy of GE junction was obtained. Scope was slowly retracted back until completely removed, noting no other pathology. RECOMMENDATIONS: The patient will stop omeprazole [ ] Protonix 40 mg daily. Continue on Carafate. We will follow up in a couple of weeks to discuss pathology results and see how his symptoms are doing at that time. Further recommendation pending those results. Job ID: [id number] DocumentID: [id number] Dictated Date: 12/20/2022 23:25:45 Program Services Assistant Date: 12/21/2022 04:29:00 Dictated By: VIRGINIA GAINES DO
== END 2022-12-20 14:29 | disposition home or self-care (01) ==
LOC: ENDO 11:14
PROVIDERS: ATTEND Surgery
DX: K21.00 Gastro-esophageal reflux disease with esophagitis, without bleeding (principal); K44.9 Diaphragmatic hernia without obstruction or gangrene; K31.89 Other diseases of stomach and duodenum

== ENCOUNTER → 2023-01-11 | Outpatient (CLI) | payer MEDICAID ==
--- NOTE | 2023-01-11 13:31 | Diagnostic Imaging Report ---
EXAMINATION: Magnetic resonance imaging of the left shoulder without contrast. DATE: January 11, 2023. COMPARISON: None. HISTORY: 62-year-old male, left shoulder pain. Rotator cuff tendon tear. TECHNIQUE: Magnetic Resonance Imaging sequences were performed of the shoulder without contrast. FINDINGS: ROTATOR CUFF, LIGAMENTS, TENDONS, AND MUSCLES: There is supraspinatus tendinopathy. The infraspinatus and teres minor tendons are intact. There is subscapularis tendinopathy. There is normal rotator cuff muscle bulk and signal. LONG HEAD OF BICEPS: The biceps labral attachment and long head of the biceps tendon are intact. The long head of the biceps tendon is normally positioned within the bicipital groove. GLENOHUMERAL JOINT: The humeral head is well positioned relative to the glenoid. The labrum is grossly intact. There is no identified paralabral cyst. The articular cartilage is grossly intact. There is thickening and increased signal of the axillary pouch. There is loss of normal fat signal in the rotator interval. There is no large glenohumeral joint effusion. ACROMIOCLAVICULAR JOINT: The acromioclavicular joint is normally aligned. The coracoclavicular and coracoacromial ligaments are intact. There are no degenerative changes of the acromioclavicular joint. BONE: There is no os acromiale. There is no Hill-Sachs deformity. There is no acute fracture, bone contusion, or evidence of osteonecrosis. BURSAE AND SOFT TISSUES: The bursae and soft tissue surrounding the shoulder are unremarkable. IMPRESSION: 1. Supraspinatus and subscapularis tendinopathy. Negative for rotator cuff tendon tear. 2. Intact and normally positioned proximal long head of the biceps tendon. 3. Thickening of the axillary pouch with increased signal and loss of normal fat signal in the rotator interval which are findings which can be seen with adhesive capsulitis which would be a clinical diagnosis. 4. Intact labrum and articular cartilage of the glenohumeral joint. 5. Intact acromioclavicular joint. 6. No acute fracture, bone contusion, or other notable bone marrow signal abnormality. Dictated by: Dictated on workstation # [id number]
== END ==
LOC: RAD 09:56
PROVIDERS: ATTEND Nurse Practitioner
DX: M75.122 Complete rotator cuff tear or rupture of left shoulder, not specified as traumatic (principal); R59.0 Localized enlarged lymph nodes
CPT/HCPCS: 73221